=== PATIENT | female | born 1940 | race Caucasian/White ===

== ENCOUNTER 2017-10-10 14:31 | Emergency (ER) | payer MEDICARE ==
--- NOTE | 2017-10-10 15:35 | RAD ---
CHEST PA AND LATERAL 2 VIEWS: Date: 10/10/17 HISTORY: 76-year-old female with cough. FINDINGS: Prominent dextroscoliosis of the mid thoracic vertebral column. Heart size is normal. There is some a therosclerosis of the aorta. No confluent pneumonia, overt edema, or pleural effusion. IMPRESSION: Dextroscoliosis. No acute intrathoracic disease. Stable from 08/30/15. POS: [facility]
[2017-10-10 15:52] LABS: #Basophils 0.1 thou/uL (0.0-0.2); #Eosinphils 0.1 thou/uL (0.0-0.7); #Lymphocytes 1.7 thou/uL (1.20-3.40); #Monocytes 0.5 thou/uL (0.11-0.59); #Neutrophils 2.3 thou/uL (1.40-6.50); %Basophils 1.3 % (0.0-1.0); %Eosinophils 1.8 % (0.0-10.0); %Lymphocytes 36.6 % (21.0-51.0); %Monocytes 11.2 % (0.0-10.0); %Neutrophils 49.1 % (42.0-75.0); Hemoglobin 12.3 g/dL (12.0-16.0); Mean Corpuscular HGB CONC 32.2 g/dL (32.0-36.0); Mean Corpuscular Hemoglobin 31.7 pg (27.0-31.0); Mean Corpuscular Volume 98.3 fl (81.0-99.0); Mean Platelet Volume 5.7 fL (7.4-10.4); Platelet Count 286 thou/uL (130-400); RBC Distribution Width 11.2 % (11.5-14.5); Red Blood Cell (RBC) Count 3.88 mill/uL (4.20-5.40); White Blood Cell (WBC) Count 4.6 thou/uL (4.8-10.8)
[2017-10-10 16:13] LABS: ALT (SGPT) 78 U/L (8-55); AST (SGOT) 72 U/L (5-34); Albumin 3.9 g/dL (3.4-4.8); Alkaline Phosphatase 286 U/L (40-150); Anion Gap 13 mmol/L (10-20); BUN (Urea Nitrogen) 9 mg/dL (9.8-20.1); Bilirubin, Total 0.2 mg/dL (0.2-1.2); Calc. Creatinine Clearance 0 mL/min (70-130); Calcium 9.4 mg/dL (7.8-10.44); Carbon Dioxide 28 mmol/L (23-31); Chloride 94 mmol/L (98-107); Estimated GFR-MDRD 83; Globulin 3.1 g/dL (2.4-3.5); Glucose 90 mg/dL (83-110); Potassium 4.4 mmol/L (3.5-5.1); Sodium 131 mmol/L (136-145)
[2017-10-10] MEDS ORDERED: Dexamethasone 4 mg/ml Vial ONE (16:30)
== END 2017-10-10 18:10 | disposition home or self-care (01) ==
LOC: ERS 14:31
DX: R06.2 Wheezing (principal); K21.9 Gastro-esophageal reflux disease without esophagitis; I10 Essential (primary) hypertension
CPT/HCPCS: 36415; 71046; 80053; 85025; 94640; J1100; J7620

== ENCOUNTER 2017-10-12 02:52 | Emergency (ER) | payer MEDICARE ==
[2017-10-12] MEDS ORDERED: Acetaminophen 500 MG TAB ONE (04:05)
== END 2017-10-12 04:56 | disposition home or self-care (01) ==
LOC: ERS 02:52
DX: I10 Essential (primary) hypertension (principal); K21.9 Gastro-esophageal reflux disease without esophagitis; G89.29 Other chronic pain
CPT/HCPCS: 99283

== ENCOUNTER 2018-06-07 14:20 | Outpatient (CLI) | payer MEDICARE | END 2018-06-07 14:21 | disposition home or self-care (01) | LOC: BICCT 14:20 | PROVIDERS: ATTEND Neurological Surgery | DX: M54.5 Low back pain (principal); M54.6 Pain in thoracic spine; M47.894 Other spondylosis, thoracic region; M43.9 Deforming dorsopathy, unspecified; M47.896 Other spondylosis, lumbar region | CPT/HCPCS: 72128; 72131 ==

== ENCOUNTER 2018-08-10 16:48 | Emergency (ER) | payer MEDICARE | END 2018-08-10 17:35 | disposition home or self-care (01) | LOC: ERS 16:48 | DX: S00.512A Abrasion of oral cavity, initial encounter (principal); K21.9 Gastro-esophageal reflux disease without esophagitis; I10 Essential (primary) hypertension; Z79.899 Other long term (current) drug therapy; Z79.891 Long term (current) use of opiate analgesic; Y33.XXXA Other specified events, undetermined intent, initial encounter | CPT/HCPCS: 99283 ==

== ENCOUNTER 2018-10-30 23:44 | Observation (INO) | payer MEDICARE ==
[2018-10-31 00:25] LABS: #Eosinphils 0.1 thou/uL (0.0-0.7); #Lymphocytes 1.1 thou/uL (1.20-3.40); #Monocytes 0.6 thou/uL (0.11-0.59); #Neutrophils 4.8 thou/uL (1.40-6.50); %Eosinophils 1.7 % (0.0-10.0); %Lymphocytes 15.6 % (21.0-51.0); %Monocytes 9.1 % (0.0-10.0); %Neutrophils 71.6 % (42.0-75.0); Hemoglobin 12.9 g/dL (12.0-16.0); Mean Corpuscular HGB CONC 33.1 g/dL (32.0-36.0); Mean Corpuscular Hemoglobin 31.5 pg (27.0-31.0); Mean Platelet Volume 6.3 fL (7.4-10.4); Platelet Count 238 thou/uL (130-400); Red Blood Cell (RBC) Count 4.11 mill/uL (4.20-5.40); White Blood Cell (WBC) Count 6.7 thou/uL (4.8-10.8)
[2018-10-31 00:26] LABS: #Basophils 0.1 thou/uL (0.0-0.2)
[2018-10-31 00:47] LABS: ALT (SGPT) 21 U/L (8-55); AST (SGOT) 22 U/L (5-34); Albumin 4.5 g/dL (3.4-4.8); Alkaline Phosphatase 74 U/L (40-150); Anion Gap 12 mmol/L (10-20); BUN (Urea Nitrogen) 26 mg/dL (9.8-20.1); Bilirubin, Total 0.3 mg/dL (0.2-1.2); Calc. Creatinine Clearance 0 mL/min (70-130); Calcium 10.6 mg/dL (7.8-10.44); Carbon Dioxide 26 mmol/L (23-31); Chloride 99 mmol/L (98-107); Estimated GFR-MDRD 69; Globulin 2.9 g/dL (2.4-3.5); Glucose 111 mg/dL (83-110); Potassium 4.1 mmol/L (3.5-5.1); Protein, Total 7.4 g/dL (6.0-8.3); Sodium 133 mmol/L (136-145)
[2018-10-31] MEDS ORDERED: Aspirin Chewable 81 MG TAB ONE (01:35)
[2018-10-31] MEDS ORDERED: Nitroglycerin 0.4 MG TAB 1 EACH ONE (01:35)
[2018-10-31] MEDS ORDERED: HYDROcodone/Acetaminophen 10/325 mg Tablet ONE (03:01)
[2018-10-31 03:55] LABS: Troponin I Less than 0.010 ng/mL (< 0.028)
[2018-10-31 04:31] VITALS: BMI 23.1
[2018-10-31] MEDS ORDERED: Acetaminophen 325 MG TAB PO PRN (04:58)
[2018-10-31] MEDS ORDERED: HYDROcodone/Acetaminophen 5/325 mg Tablet PO PRN ×2 (04:58)
[2018-10-31 07:20] LABS: Troponin I Less than 0.010 ng/mL (< 0.028)
--- NOTE | 2018-10-31 08:04 | RAD ---
FRONTAL RADIOGRAPH CHEST: DATE: 10/31/2018. COMPARISON: 08/30/2015. HISTORY: Short of breath. FINDINGS: Heart and mediastinal contours are stable. There is atherosclerotic calcification of the aortic arch . There is dextroscoliosis of the mid thoracic spine. No pneumothorax, pleural fluid, focal consolidat ion, or alveolar edema. IMPRESSION: No acute findings. POS: [facility]
--- NOTE | 2018-10-31 08:48 | CT ---
PRELIMINARY REPORT/[facility]/EMERGENTY AFTER-HOURS PROCEDURE CT Angiography Chest With Contrast EXAM DATE/TIME: 10/31/2018 1:50 AM CLINICAL HISTORY: 77 years old, female; Signs and symptoms; Dyspnea; Patient HX: PT C/O SOB and chest pain. States its hard to take in a deep breath. TECHNIQUE: Axial computed tomographic angiography images of the chest with intravenous contrast using CT angiogr aphy protocol. MIP reconstructed images were created and reviewed. COMPARISON: No relevant prior studies available. FINDINGS: Pulmonary arteries: There is no evidence of peripheral filling defects within the pulmonary arterial circulation to suggest pulmonary embolism. Aorta: The aorta is normal. There is no evidence of aortic dissection, leak, rupture, or other compli cations. Thyroid: The visualized thyroid gland is unremarkable. Lungs: There is subpleural atelectasis of the dependent portions of the lungs. Pleural space: Normal. No pneumothorax. No pleural effusion. Heart: Normal. No cardiomegaly. No pericardial effusion. Mediastinum: The trachea is normal. Upper abdomen: The visualized intra-abdominal structures are normal. Lymph nodes: Unremarkable. No enlarged lymph nodes. Bones/joints: There is mild S-shaped scoliosis of the spine. No acute fracture. Soft tissues: Unremarkable. IMPRESSION: There is no CT evidence of acute pulmonary embolism. Thank you for allowing us to participate in the care of your patient. Dictated and Authenticated by: Danny Mancini MD 10/31/2018 2:37 AM Central Time ([place] & [place]) FINAL REPORT CT ANGIOGRAM OF CHEST: Date: 10/31/18 HISTORY: Shortness of breath. Chest pain. COMPARISON: None. TECHNIQUE: CT angiogram of the chest was performed in the axial plane. Three-dimensional reformatted images are submitted for interpretation. FINDINGS: This report is in agreement with the preliminary report by Brent. No evidence of pulmonary artery embo lism to the level of the segmental arteries. POS: [facility]
[2018-10-31] MEDS ORDERED: Ondansetron ODT 4 MG TAB PO PRN (10:02)
[2018-10-31] MEDS ORDERED: Ondansetron PF 4 MG/2 ML Vial IVP PRN (10:02)
[2018-10-31] MEDS ORDERED: ESTRADIOL 0.1 MG PO PRN (10:05)
[2018-10-31] MEDS ORDERED: CLORAZEPATE DIPOTASSIUM 7.5 MG PO PRN ×3 (10:05→10:51)
[2018-10-31] MEDS ORDERED: cloNIDine 0.1 MG TAB PO PRN (10:05)
[2018-10-31] MEDS ORDERED: Estradiol 1 MG TAB PO PRN (10:48)
[2018-10-31] MEDS ORDERED: Saccharomyces boulardii 250 MG CAP PO SCH ×2 (11:15→12:00)
[2018-10-31] MEDS ORDERED: ADENOSINE 60 MG/20 ML VIAL ONE (12:04)
[2018-10-31] MEDS: Carvedilol 6.25 MG TAB PO SCH ×2 (13:06→17:03)
--- NOTE | 2018-10-31 13:55 | HP ---
PRIMARY CARE PHYSICIAN: Amadeo Sorto MD PRIMARY STRUCTURAL RIGGER: Dr. Viveros. PRIMARY SHIRRING TENDER: Dr. Chao. CHIEF COMPLAINT: Left-sided chest pain/epigastric pain, abdominal bloating. HISTORY OF PRESENT ILLNESS: Ms. Melendrez is a pleasant 77-year-old female with past medical history of hypertension, gastroesophageal reflux disease, and disk herniation in her back, who had presented to [facility] late last night with left-sided chest pain radiating to left epigastric area along with abdominal bloating over the last several weeks. She states roughly a month ago, she had a tooth extraction by her kitchen worker. She states prior to this procedure, she was placed on antibiotics that she could not tell me what she was on, she states that she took this for about a week. She had reported some abdominal bloating and flatulence during this time as well. She had started herself on an [id number] probiotic and she states that the symptoms did improve. She states that she had stopped this about 2 weeks ago, but had noticed symptoms returned about 1 week ago. She states roughly on Wednesday of last week, she had restarted this probiotic and states symptoms are improved; however, still present. She was worried that this was possibly her heart. Therefore, she had drove herself to the Emergency Department for further evaluation. She states that she has had a cardiac workup in the past, but does not know these results. She states her primary photogrammetric stereo compiler is Dr. Chao, whom she follows up with on a yearly basis. She had denied any fever, chills, any headache or dizziness. She did report some shortness of breath with activity that had been going on for the last week along with her other symptoms. During her initial workup in the Emergency Department, she underwent a chest x-ray, which was found to be negative and showed no acute findings. CTA of chest ruled out pulmonary emboli. Her initial troponins were found to be negative and less than 0.010 x2 and D-dimer 0.61. She will be admitted under observation for further cardiac workup and rule out ACS. REVIEW OF SYSTEMS: All other systems reviewed and found to be negative unless mentioned in the HPI. PAST MEDICAL HISTORY: Hypertension, disk herniation, and gastroesophageal reflux disease. PAST SURGICAL HISTORY: History of abdominal surgery to repair a torn mesh, appendectomy, hernia repair, surgery on her right knee, surgery on left hip, and total knee replacement on the right. SOCIAL HISTORY: Denies any alcohol, tobacco, or illicit drug use. FAMILY HISTORY: No significant history of coronary artery disease or strokes. ALLERGIES: KETOROLAC, MORPHINE, AND PENICILLIN. HOME MEDICATIONS: 1. OxyContin 40 mg p.o. q.6 hours p.r.n. pain. 2. Hydrocodone/acetaminophen 7.5 mg/325 mg tablet p.o. q.4 hours as needed for pain. 3. Enalapril 20 mg p.o. b.i.d. with meals. 4. Carisoprodol/Soma 350 mg p.o. q.i.d. 5. Clonidine 0.1 mg p.o. p.r.n. hypertension. 6. Carvedilol 6.25 mg p.o. t.i.d. with meals. 7. Amlodipine 5 mg p.o. at bedtime. 8. Ranitidine 150 mg p.o. daily. 9. Dulcolax 5 mg p.o. every 3 days as needed. 10. Desmopressin 0.05 mg p.o. at bedtime. 11. Clorazepate dipotassium 7.5 mg p.o. b.i.d. p.r.n. 12. Estradiol 0.1 mg p.o. p.r.n. PHYSICAL EXAMINATION: VITAL SIGNS: BP 120/64, pulse 63, respirations 16, temperature 98.1 degrees Fahrenheit, and O2 saturation 96% on room air. GENERAL: Lying comfortably in bed, awake, alert, and oriented x3. No acute distress noted. Appears well groomed. HEENT: Normocephalic and atraumatic. Pupils are round and reactive to light. Extraocular muscles intact. Moist mucous membranes noted. NECK: Soft and supple. No JVD. No bruit. Trachea midline. CARDIOVASCULAR: Positive S1 and S2. Regular rate and rhythm. No murmur, rubs, or gallops. RESPIRATORY: Clear to auscultation bilaterally without wheezes, rales, or rhonchi. ABDOMEN: Soft and nontender. Bowel sounds present. Nondistended. Increased sounds to percussion. EXTREMITIES: Strength 5+ bilaterally upper and lower extremities. Moves all extremities equal. Radial and pedal pulses palpable and normal. SKIN: Warm, dry, and intact. Surgical scars noted in left hip and right knee. NEUROLOGIC: Cranial nerves 2 through 12 intact. No focal deficits noted. Gait not assessed. PSYCHIATRIC: Good mood and affect. LABORATORY DATA: WBC 6.7, RBC 4.11, hemoglobin 12.9, and platelets 238. D-dimer 0.61. Sodium 133, potassium 4.1, carbon dioxide 26, anion gap 12, BUN 26, creatinine 0.81, estimated GFR 69, and alkaline phosphatase 74. Troponin less than 0.010 x2. Lipase 11. DIAGNOSTIC IMAGING: Chest x-ray showed no acute findings. CTA of chest showed no evidence of acute pulmonary embolism. ASSESSMENT AND PLAN: 1. Left-sided epigastric pain, this is likely secondary to underlying gastroesophageal reflux disease. However, we will rule out cardiac etiology with stress test and echocardiogram, place the patient on proton pump inhibitor with Protonix along with probiotic. Monitor symptoms closely and await further workup. Start Zofran as needed for nausea. 2. Hypertension, currently stable at this time. She will remain on her home regimen and monitor vital signs closely. 3. History of chronic back pain. Continue on home regimen at this time. 4. Deep venous thrombosis prophylaxis and gastrointestinal prophylaxis. 5. Code status. Full code. 6. Disposition pending further workup and clinical findings. If her workup for cardiac etiology is negative, she will likely be discharged home with a continued use of probiotic and proton pump inhibitor. Job ID: [id number]
--- NOTE | 2018-10-31 15:17 | NM ---
EXAM: CARDIAC SPECT WITH EF AND WALL MOTION: History: 77-year-old female with history of chest pain and hypertension. This is an adenosine sestamibi study. FINDINGS: Patient was injected with 31.9 mCi Technetium 99M Sestamibi intravenously for stress imaging and 9.3 mCi Technetium 99M Sestamibi intravenously for resting imaging. Multiple SPECT images in the short axis, vertical long axis, and horizontal long axis demonstrates no scan evidence for infarct or ischemia. TID: 0.76 LHR: 0.36 EDV: 70 ml EF: 85% MYOCARDIAL PERFUSION WALL MOTION: Wall motion is normal. IMPRESSION: Normal cardiac SPECT with EF and wall motion. POS: [facility]
[2018-10-31] MEDS ORDERED: ISOVUE-370 76%-LOCM 1 ML ONE (16:56)
[2018-10-31] MEDS ORDERED: ENALAPRIL MALEATE 20 MG PO SCH (17:00)
[2018-10-31] MEDS ORDERED: DESMOPRESSIN ACETATE PO SCH (21:00)
[2018-10-31] MEDS ORDERED: Desmopressin 0.2 mg Tablet PO SCH ×2 (21:00)
[2018-10-31] MEDS ORDERED: Amlodipine 5 MG TAB PO SCH (21:00)
[2018-11-01] MEDS ORDERED: oxyCODONE ER 20 MG TAB PO PRN (03:45)
[2018-11-01] MEDS ORDERED: HYDROcodone/Acetaminophen 7.5/325 mg Tablet PO PRN (03:45)
[2018-11-01 05:25] LABS: #Eosinphils 0.1 thou/uL (0.0-0.7); #Lymphocytes 1.1 thou/uL (1.20-3.40); #Monocytes 0.6 thou/uL (0.11-0.59); #Neutrophils 2.5 thou/uL (1.40-6.50); %Basophils 0.3 % (0.0-1.0); %Eosinophils 1.3 % (0.0-10.0); %Lymphocytes 25.3 % (21.0-51.0); %Monocytes 13.4 % (0.0-10.0); %Neutrophils 59.6 % (42.0-75.0); Hemoglobin 12.2 g/dL (12.0-16.0); Mean Corpuscular Hemoglobin 31.6 pg (27.0-31.0); Mean Corpuscular Volume 95.7 fL (78.0-98.0); Mean Platelet Volume 6.3 fL (7.4-10.4); Platelet Count 215 thou/uL (130-400); RBC Distribution Width 11.2 % (11.5-14.5); Red Blood Cell (RBC) Count 3.86 mill/uL (4.20-5.40); White Blood Cell (WBC) Count 4.3 thou/uL (4.8-10.8)
[2018-11-01 05:41] LABS: Anion Gap 12 mmol/L (10-20); BUN (Urea Nitrogen) 15 mg/dL (9.8-20.1); Calc. Creatinine Clearance 86 mL/min (70-130); Calcium 9.7 mg/dL (7.8-10.44); Carbon Dioxide 24 mmol/L (23-31); Chloride 103 mmol/L (98-107); Estimated GFR-MDRD 86; Glucose 102 mg/dL (83-110); Potassium 3.6 mmol/L (3.5-5.1); Sodium 135 mmol/L (136-145)
[2018-11-01 08:10] VITALS: BP 130/61; TEMP 97.9
[2018-11-01] MEDS: Carvedilol 6.25 MG TAB PO SCH (08:11)
[2018-11-01] MEDS ORDERED: Enoxaparin Sodium 40 MG/0.4 ML SYRINGE SC SCH (09:00)
[2018-11-01] MEDS ORDERED: Saccharomyces boulardii 250 MG CAP PO SCH (09:00)
--- NOTE | 2018-11-01 11:19 | PDOC.EVN ---
Event Note - Event Note Event Note: patient interviewed, management discussed with John MANN concmarcela
--- NOTE | 2018-11-01 22:18 | DIS ---
DATE OF ADMISSION: 10/31/2018 DATE OF DISCHARGE: 11/01/2018 DISCHARGE DIAGNOSES: 1. Chest pain, noncardiac, resolved. 2. Gastroesophageal reflux disease, stable. 3. Hypertension, stable. CONSULTATIONS: None. PROCEDURES: None. LABORATORY DATA: WBC 4.3, RBC 3.86, hemoglobin 12.2, platelet 215. D-dimer 0.61. Sodium 135, potassium 3.6, carbon dioxide 24, anion gap 12, BUN 15, creatinine 0.67, estimated GFR 86, glucose 102. Troponin less than 0.010 x2. BNP 69.6, lipase 11. DIAGNOSTIC IMAGING: Portable chest x-ray showed no acute findings. CTA of chest showed no CT evidence of acute pulmonary embolism. Cardiac stress test showed normal wall motion with an EF of 85%, normal cardiac stress test. Pending diagnostic test, echocardiogram obtained on 10/31/2018. HOSPITAL COURSE: Ms. Melendrez is a pleasant 77-year-old female, who had presented to [facility] with left-sided chest pain, epigastric pain, and worsening abdominal bloating. She was admitted under observation and underwent cardiac workup. Serial troponins were found to be negative x3. Her D-dimer was found to be elevated at 0.61. However, CTA of chest ruled out pulmonary embolism. Portable chest x-ray was found to be unremarkable. She was placed on her home medications and started on Protonix twice daily along with probiotic. She had reported recently taking clindamycin for a possible tooth infection and since then had developed the symptoms. Therefore, worsening of her underlying gastroesophageal reflux disease was presumed along with possible gastritis due to clindamycin. Throughout hospital course, symptoms did improve continuing on PPI and probiotic. She underwent echocardiogram, which these results are pending at the time of discharge. She also underwent cardiac stress tests, which found normal wall motion and ejection fraction of 85% with no evidence for infarct or ischemia. She was seen and examined with her son at bedside. Prior to discharge, she had no further complaints of headache, dizziness, blurred vision, chest pain, palpitations, shortness of breath, or abdominal pain. She had returned to her baseline. She was instructed to continue her home probiotic along with PPI. She was also instructed to continue her home medications. She had verbalized her understanding for this discharge plan and was deemed medically stable for discharge home on 11/01/2018. DISCHARGE MEDICATIONS: 1. OxyContin 40 mg p.o. every 6 hours p.r.n. pain. 2. Hydrocodone/acetaminophen 7.5/325 mg oral q.4 hours as needed for pain. 3. Enalapril 20 mg p.o. b.i.d. 4. Soma 350 mg p.o. q.i.d. 5. Clonidine 0.1 mg p.o. p.r.n. elevated blood pressure. 6. Carvedilol 6.25 mg p.o. t.i.d. with meals. 7. Amlodipine 5 mg p.o. at bedtime. 8. Ranitidine 150 mg p.o. daily. 9. Dulcolax 5 mg p.o. every 3 days. 10. Desmopressin 0.05 mg at bedtime. 11. Clorazepate dipotassium 7.5 mg p.o. b.i.d. 12. Estradiol 0.1 mg p.o. 13. Protonix 40 mg p.o. b.i.d. FOLLOWUP: The patient was instructed to follow up with her primary care physician, Dr. Amadeo Sorto, in 1 to 2 weeks. CONDITION ON DISCHARGE: Stable. ACTIVITY: As tolerated. DIET: Heart healthy. CODE STATUS: Full code. DISPOSITION: Home on 11/01/2018. Job ID: [id number]
[2018-11-03] MEDS ORDERED: Bisacodyl 5 MG TAB PO SCH (09:00)
--- NOTE | 2018-11-05 14:47 | EKG ---
Test Reason : Blood Pressure : / mmHG Vent. Rate : 078 BPM Atrial Rate : 078 BPM P-R Int : 156 ms QRS Dur : 096 ms QT Int : 350 ms P-R-T Axes : 073 046 037 degrees QTc Int : 399 ms Sinus rhythm with Premature supraventricular complexes Otherwise normal ECG Confirmed by ROGELIO TRINIDAD MD ([id number]), content editor ALAN REBOLLAR ([id number]) on 11/05/2018 2:47:05 PM Referred By: Confirmed By:ROGELIO TRINIDAD MD
--- NOTE | 2018-11-07 14:18 | STRESS ---
Acquisition Time: 2018-10-31 11:41:42 Total Exercise Time: 00:04:00 Test Indications: CHEST PAIN Medications: Protocol: ADENOSINE Max HR: 085 BPM 58% of Pred: 145 BPM Max BP: 154/080 mmHG Max Work Load: 1.0 METS RESTING ECG: NORMAL SINUS RHYTHM AT 65 BPM SYMPTOMS: CHEST PAIN NORMAL BP RESPONSE ECTOPY: NONE ECG STRESS: NO SIGNIFICANT CHANGES INTERPRETATION: AWAIT NUCLEAR IMAGES FOR DEFINITIVE DIAGNOSIS COMMENTS: CARMEN DURING ADENOSINE INFUSION Confirmed by MARYANN COCHRAN ([id number]), editor news MURTAZA LR ([id number]) on 11/07/2018 2:17:21 PM Referred By: JOS COREY Confirmed By:MARYANN COCHRAN
== END 2018-11-01 11:22 | disposition home or self-care (01) ==
LOC: ERS 23:44 → 2SW 10-31 03:07
PROVIDERS: ADMIT Hospitalist; ATTEND Hospitalist
DX: R07.89 Other chest pain (principal); K21.9 Gastro-esophageal reflux disease without esophagitis; I10 Essential (primary) hypertension; I70.0 Atherosclerosis of aorta; Z88.0 Allergy status to penicillin; Z88.5 Allergy status to narcotic agent; Z88.6 Allergy status to analgesic agent; Z98.890 Other specified postprocedural states; Z79.899 Other long term (current) drug therapy
CPT/HCPCS: 71045; 71275; 78452; 80048; 80053; 83690; 83880; 84484 ×2; 85025 ×2; 85379; 93005; 93017; 93306; 96372; 99285; A9500; G0378; 36415; J0153; J1650; Q9966

== ENCOUNTER 2019-01-04 12:27 | Emergency (ER) | payer MEDICARE ==
[2019-01-04 13:34] LABS: #Basophils 0.1 thou/uL (0.0-0.2); #Eosinphils 0.1 thou/uL (0.0-0.7); #Lymphocytes 1.6 thou/uL (1.20-3.40); #Monocytes 0.4 thou/uL (0.11-0.59); #Neutrophils 3.2 thou/uL (1.40-6.50); %Basophils 1.2 % (0.0-1.0); %Eosinophils 1.5 % (0.0-10.0); %Lymphocytes 29.6 % (21.0-51.0); %Monocytes 7.8 % (0.0-10.0); Hemoglobin 13.6 g/dL (12.0-16.0); Mean Corpuscular HGB CONC 32.8 g/dL (32.0-36.0); Mean Corpuscular Hemoglobin 30.3 pg (27.0-31.0); Mean Corpuscular Volume 92.3 fL (78.0-98.0); Mean Platelet Volume 6.1 fL (7.4-10.4); Platelet Count 287 thou/uL (130-400); Red Blood Cell (RBC) Count 4.49 mill/uL (4.20-5.40); White Blood Cell (WBC) Count 5.4 thou/uL (4.8-10.8)
[2019-01-04 13:51] LABS: ALT (SGPT) 13 U/L (8-55); AST (SGOT) 23 U/L (5-34); Albumin 4.6 g/dL (3.4-4.8); Alkaline Phosphatase 88 U/L (40-150); Anion Gap 13 mmol/L (10-20); BUN (Urea Nitrogen) 14 mg/dL (9.8-20.1); Bilirubin, Total 0.5 mg/dL (0.2-1.2); Calc. Creatinine Clearance 0 mL/min (70-130); Calcium 10.2 mg/dL (7.8-10.44); Carbon Dioxide 27 mmol/L (23-31); Chloride 93 mmol/L (98-107); Estimated GFR-MDRD 73; Globulin 2.7 g/dL (2.4-3.5); Glucose 91 mg/dL (83-110); Potassium 4.1 mmol/L (3.5-5.1); Protein, Total 7.3 g/dL (6.0-8.3); Sodium 129 mmol/L (136-145)
[2019-01-04 14:02] LABS: Bilirubin Negative (Negative); Blood, Urine Negative (Negative); Clarity CLEAR (Clear); Glucose, Urine (Dipstick) Negative (Negative); Leukocyte Negative (Negative); Nitrite Negative (Negative); Protein, Urine (Dipstick) Negative (Neg-Trace); Specific Gravity, Urine 1.004 (1.002-1.036); Urobilinogen 0.2 mg/dL (0.2-1.0)
--- NOTE | 2019-01-04 16:03 | RAD ---
XR Neck Soft Tissue History: [Dysphagia] Comparison: None. Findings: The prevertebral soft tissues are unremarkable. Extensive calcifications along the supraspi nous ligament of the upper thoracic spine. Multilevel severe degenerative disc space narrowing about the cervical spine. There is anterolisthesi s of C3 over C4 and C4 over C5. Visualized lung apices appear unremarkable. Impression: Unremarkable examination of the neck soft tissues. Severe degenerative changes.
[2019-01-04] MEDS ORDERED: Aspirin Chewable 81 MG TAB ONE (17:47)
== END 2019-01-04 18:00 | disposition home or self-care (01) ==
LOC: ERS 12:27
DX: R13.10 Dysphagia, unspecified (principal); E87.1 Hypo-osmolality and hyponatremia; K21.9 Gastro-esophageal reflux disease without esophagitis; F41.9 Anxiety disorder, unspecified; Z79.899 Other long term (current) drug therapy
CPT/HCPCS: 36415; 70360; 80053; 81003; 84484; 85025; 93005

== ENCOUNTER 2019-03-10 10:03 | Day surgery (SDC) | payer MEDICARE ==
[2019-03-09 14:44] VITALS: BMI 24.4
--- NOTE | 2019-03-10 00:23 | HP ---
HISTORY OF PRESENT ILLNESS: A 78-year-old female referred to me for evaluating dysphagia. She is known to have chronic acid reflux .. She complains of fullness and also difficulty with swallowing. She has seen an Ear , Nose and Throat doctor and laryngoscopy was negative. The patient comes in for EGD, because of the above reason. ALLERGIES: PENICILLIN. SOCIAL HISTORY: The patient is a former smoker. Does not drink alcohol. MEDICAL ILLNESSES: 1. Chronic acid reflux. 2. Herniated disk, back. 3. Bone fracture. 4. Hypertension. 5. Migraine. 6. IBS. 7. Osteoporosis. PAST SURGICAL HISTORY: Appendectomy, hysterectomy, knee surgery, cataract surgery, and also hip surgery. PHYSICAL EXAMINATION: GENERAL: Appears comfortable, pulse is 70, blood pressure 120/76. HEENT: Conjunctivae clear. NECK: Supple. No adenitis or thyromegaly noted. CARDIOVASCULAR: First and second sound. LUNGS: Clear to auscultation. ABDOMEN: Soft. No organomegaly. No tenderness. No masses. ADMITTING DIAGNOSIS: Dysphagia-chronic acid reflux. PLAN: EGD. Job ID: [id number] [facility]
[~2019-03-10 10:03] MED LIST: Ondansetron PF 4 MG/2 ML Vial ONE
[2019-03-10] MEDS ORDERED: Lidocaine 1% PF 5 ML VIAL ONE (10:57)
[2019-03-10] MEDS ORDERED: PROPOFOL 200 MG/20 ML VIAL ONE (10:57)
--- NOTE | 2019-03-10 21:28 | EKG ---
Test Reason : PREOP Blood Pressure : / mmHG Vent. Rate : 068 BPM Atrial Rate : 068 BPM P-R Int : 232 ms QRS Dur : 096 ms QT Int : 384 ms P-R-T Axes : 079 070 049 degrees QTc Int : 408 ms Sinus rhythm with 1st degree A-V block Otherwise normal ECG When compared with ECG of 04-JAN-2019 16:55, MS interval has increased Confirmed by Cooper MARIE ([id number]) on 03/10/2019 9:27:51 PM Referred By: GUMARO Confirmed By:Cooper MARIE
--- NOTE | 2019-03-13 11:39 | OP ---
DATE OF PROCEDURE: 03/10/2019 PROCEDURES PERFORMED: 1. Esophagogastroduodenoscopy. 2. Esophageal dilation with a 46-Guaman[place] Amaya dilator. PREOPERATIVE DIAGNOSES: Dysphagia, current dyspepsia, chronic acid reflux. POSTOPERATIVE DIAGNOSES: 1. Mild gastritis. 2. Small hiatus hernia. 3. No esophageal stricture seen. Otherwise, normal esophagogastroduodenoscopy. DESCRIPTION OF PROCEDURE: The patient was placed on the left lateral position and was given sedation by Anesthesia Department. A Pentax video gastroscope under direct vision was passed down the oropharynx, past the GE junction into the stomach and subsequently into the descending duodenum. Although the patient had chronic acid reflux,, the esophageal mucosa appeared normal. No esophagitis seen. The GE junction , no pathology. She had a small hiatal hernia. Retroflexion failed to show any pathology in the fundus or cardia. The gastric body, no pathology. The gastric antrum showed patchy areas of mucosal edema, erythema. The duodenal bulb, descending duodenum, no pathology. The stomach decompressed and the scope removed. Because of history of dysphagia, a 46-Gu[place] Amaya dilation done. The scope was advanced into stomach without resistance. The patient was re-scoped again and no complication. Also, biopsy was obtained from the gastric antrum and gastric body. DISCHARGE PLANNING: This is a 78-year-old female, came for EGD because of dysphagia, chronic acid reflux. The EGD showed no esophagitis, but does show a small hiatus hernia and gastritis. She underwent empiric dilation with a 46- [place] Amaya dilator. DISCHARGE RECOMMENDATION: 1. The patient advised to call me if she develops abdominal pain, hematochezia, hematemesis, or melena. 2. Come back to clinic in 2 weeks. Job ID: [id number] [facility]
== END 2019-03-10 10:23 | disposition home or self-care (01) ==
LOC: SDC 10:03
PROVIDERS: ATTEND Internal Medicine Gastroenterology
PROC: 0D757ZZ Dilation of Esophagus, Via Natural or Artificial Opening (ICD-10-PCS; principal; 2019-03-10)
PROC: 0DB68ZX Excision of Stomach, Via Natural or Artificial Opening Endoscopic, Diagnostic (ICD-10-PCS; 2019-03-10)
PROC: 0DB78ZX Excision of Stomach, Pylorus, Via Natural or Artificial Opening Endoscopic, Diagnostic (ICD-10-PCS; 2019-03-10)
DX: K29.50 Unspecified chronic gastritis without bleeding (principal); B96.81 Helicobacter pylori [H. pylori] as the cause of diseases classified elsewhere; R13.10 Dysphagia, unspecified; K21.9 Gastro-esophageal reflux disease without esophagitis; K44.9 Diaphragmatic hernia without obstruction or gangrene; I10 Essential (primary) hypertension; G43.909 Migraine, unspecified, not intractable, without status migrainosus; K58.9 Irritable bowel syndrome, unspecified; M81.0 Age-related osteoporosis without current pathological fracture; Z87.891 Personal history of nicotine dependence; Z88.0 Allergy status to penicillin; Z79.899 Other long term (current) drug therapy; Z88.5 Allergy status to narcotic agent; Z88.6 Allergy status to analgesic agent
CPT/HCPCS: 88305; 88312; 93005; 93010; J2001; J2405; J2704

== ENCOUNTER 2019-04-13 06:49 | Emergency (ER) | payer MEDICARE | END 2019-04-13 07:42 | disposition home or self-care (01) | LOC: ERS 06:49 | DX: H60.91 Unspecified otitis externa, right ear (principal); F41.9 Anxiety disorder, unspecified | CPT/HCPCS: 99282 ==

== ENCOUNTER 2020-03-16 20:34 | Emergency (ER) | payer MEDICARE ==
[~2020-03-16 20:34] MED LIST changes: +Iopamidol-370 76% 500 ML 1 ML ONE; -Ondansetron PF 4 MG/2 ML Vial ONE
[2020-03-16 21:06] LABS: #Eosinphils 0.1 thou/uL (0.0-0.7); #Lymphocytes 1.1 thou/uL (1.20-3.40); #Monocytes 0.5 thou/uL (0.11-0.59); #Neutrophils 4.1 thou/uL (1.40-6.50); %Basophils 0.7 % (0.0-1.0); %Eosinophils 2.4 % (0.0-10.0); %Lymphocytes 19.4 % (21.0-51.0); %Monocytes 8.5 % (0.0-10.0); Hemoglobin 12.4 g/dL (12.0-16.0); Mean Corpuscular HGB CONC 33.6 g/dL (32.0-36.0); Mean Corpuscular Volume 95.3 fL (78.0-98.0); Mean Platelet Volume 6.1 fL (7.4-10.4); Platelet Count 241 thou/uL (130-400); RBC Distribution Width 11.4 % (11.5-14.5); Red Blood Cell (RBC) Count 3.88 mill/uL (4.20-5.40); White Blood Cell (WBC) Count 5.9 thou/uL (4.8-10.8)
[2020-03-16 21:30] LABS: ALT (SGPT) 23 U/L (8-55); AST (SGOT) 26 U/L (5-34); Albumin 4.1 g/dL (3.4-4.8); Alkaline Phosphatase 70 U/L (40-110); Anion Gap 12 mmol/L (10-20); BUN (Urea Nitrogen) 12 mg/dL (9.8-20.1); Bilirubin, Total 0.3 mg/dL (0.2-1.2); CK (CPK) 98 U/L (29-168); Calc. Creatinine Clearance 0 mL/min (70-130); Calcium 9.3 mg/dL (7.8-10.44); Carbon Dioxide 23 mmol/L (23-31); Chloride 95 mmol/L (98-107); Estimated GFR-MDRD 81; Globulin 2.4 g/dL (2.4-3.5); Glucose 108 mg/dL (83-110); Potassium 4.2 mmol/L (3.5-5.1); Protein, Total 6.5 g/dL (6.0-8.3); Sodium 126 mmol/L (136-145)
[2020-03-16 21:51] LABS: Bilirubin 1+ (Negative); Blood, Urine Negative (Negative); Clarity Clear (Clear); Glucose, Urine (Dipstick) Normal (Negative); Leukocyte Negative Leu/uL (Negative); Nitrite Negative (Negative); Protein, Urine (Dipstick) 10 mg/dL (Neg-Trace); Urobilinogen Normal mg/dL (Less than 2)
[2020-03-16] MEDS ORDERED: Fentanyl 100 MCG/2 ML VIAL ONE (21:54)
--- NOTE | 2020-03-16 22:35 | CT ---
CT ABDOMEN AND PELVIS WITH IV CONTRAST: Date: 03/16/2020 PROVIDED CLINICAL HISTORY: Left flank pain. FINDINGS: Comparison made with study dated 05/15/2015. The visualized lung bases are free of significant opacity. There is stable enlargement and tortuosity of the common duct, as well as mild intrahepatic biliary d uctal dilatation, presumably on the basis of patient age. The solid abdominal organs demonstrate an o therwise unremarkable CT appearance. There is inflammatory fat stranding, free fluid, or free air apparent. The appendix is not definitely visualized. The pelvis is suboptimally evaluated on the basis of beam hardening artifact from left hip arthroplas ty. There is mild ectasia of several loops of small bowel within the pelvis. There is no definite jed dence for bowel obstruction. There is conspicuous colonic fecal retention. The osseous structures demonstrate no concerning lytic or blastic lesions. There are extensive spinal degenerative changes and scoliosis demonstrated. IMPRESSION: Several loops of mildly prominent small bowel are present within the pelvis, the significance of whic h are uncertain. This could reflect ileus or less likely early partial small bowel obstruction. Consp icuous colonic fecal retention, suggesting constipation. POS: [facility]
== END 2020-03-16 23:50 | disposition home or self-care (01) ==
LOC: ERS 20:34
DX: R10.9 Unspecified abdominal pain (principal); M54.5 Low back pain; K21.9 Gastro-esophageal reflux disease without esophagitis; I10 Essential (primary) hypertension; G89.29 Other chronic pain
CPT/HCPCS: 36415; 74177; 80053; 81003; 82550; 84484; 85025; 93005; 96374; J3010; Q9967

== ENCOUNTER 2020-03-21 18:40 | Inpatient (IN) | payer MEDICARE ==
[~2020-03-21 18:40] MED LIST changes: +Iopamidol 370 76% 100 ML VIAL ONE; -Iopamidol-370 76% 500 ML 1 ML ONE
[2020-03-21 19:11] LABS: Bilirubin Negative (Negative); Blood, Urine Negative (Negative); Clarity Turbid (Clear); Glucose, Urine (Dipstick) Normal (Negative); Leukocyte Negative Leu/uL (Negative); Nitrite Negative (Negative); Protein, Urine (Dipstick) Negative (Neg-Trace); Urobilinogen Normal mg/dL (Less than 2)
[2020-03-21 20:00] LABS: #Eosinphils 0.1 thou/uL (0.0-0.7); #Lymphocytes 0.8 thou/uL (1.20-3.40); #Monocytes 0.5 thou/uL (0.11-0.59); #Neutrophils 5.8 thou/uL (1.40-6.50); %Basophils 0.4 % (0.0-1.0); %Monocytes 7.4 % (0.0-10.0); %Neutrophils 80.2 % (42.0-75.0); Hemoglobin 12.8 g/dL (12.0-16.0); Mean Corpuscular HGB CONC 34.7 g/dL (32.0-36.0); Mean Corpuscular Hemoglobin 32.2 pg (27.0-31.0); Mean Corpuscular Volume 92.9 fL (78.0-98.0); Platelet Count 246 thou/uL (130-400); RBC Distribution Width 11.1 % (11.5-14.5); Red Blood Cell (RBC) Count 3.98 mill/uL (4.20-5.40); White Blood Cell (WBC) Count 7.3 thou/uL (4.8-10.8)
[2020-03-21 20:30] LABS: ALT (SGPT) 19 U/L (8-55); AST (SGOT) 24 U/L (5-34); Alkaline Phosphatase 68 U/L (40-110); Anion Gap 11 mmol/L (10-20); BUN (Urea Nitrogen) 11 mg/dL (9.8-20.1); Bilirubin, Total 0.3 mg/dL (0.2-1.2); Calc. Creatinine Clearance 0 mL/min (70-130); Calcium 9.1 mg/dL (7.8-10.44); Carbon Dioxide 23 mmol/L (23-31); Chloride 90 mmol/L (98-107); Estimated GFR-MDRD 82; Globulin 2.6 g/dL (2.4-3.5); Glucose 109 mg/dL (83-110); Lipase 18 U/L (8-78); Protein, Total 6.6 g/dL (6.0-8.3); Sodium 120 mmol/L (136-145)
[2020-03-21] MEDS ORDERED: Fentanyl 100 MCG/2 ML VIAL ONE (21:16)
[2020-03-21] MEDS ORDERED: Ondansetron PF 4 MG/2 ML Vial ONE (21:16)
[2020-03-22] MEDS ORDERED: Ondansetron PF 4 MG/2 ML Vial IVP PRN ×2 (01:17→09:50)
[2020-03-22] MEDS ORDERED: Promethazine HCl 12.5 MG in Sodium Chloride 0.9% 50 ML IVPB PRN (01:17)
[2020-03-22] MEDS ORDERED: Acetaminophen 325 MG TAB PO PRN (01:17)
[2020-03-22] MEDS ORDERED: HYDROcodone/Acetaminophen 5/325 mg Tablet PO PRN (01:17)
[2020-03-22] MEDS ORDERED: Labetalol HCl 100 MG/20 ML VIAL SLOW IVP PRN (01:17)
[2020-03-22] MEDS ORDERED: Guaifenesin DM 100-10/5 ML UDCUP PO PRN (01:17)
[2020-03-22] MEDS ORDERED: hydrALAZINE 20 MG/ML VIAL SLOW IVP PRN (01:17)
[2020-03-22] MEDS ORDERED: cloNIDine 0.1 MG TAB PO PRN ×2 (01:17→15:41)
[2020-03-22] MEDS ORDERED: OXYCONTIN 40 MG PO PRN (01:18)
--- NOTE | 2020-03-22 01:23 | PDOC.HHP ---
Hospitalist HPI - History of Present Illness Nausea, vomiting, weakness History of Present Illness: Patient is a 79 year old female with PMH GERD, HTN, chronic back pain who presents to ED for nausea, vomiting, abdominal pain, weakness x 1 week. She was here last week for similar complaints, imaging and labs unremarkable and patient discharged home. Today in ED, labs significant for Cl 90, Na 120 (was 126 on 03/16/20). She does not feel able to go home due to continued symptoms. She takes desmopressin daily 0.05mg qHS, presumably for DI, sees Dr Viveros, she reports very frequent dark urine and has urinated 4-5 times since coming to ED. Otherwise, denies chest pain, no SOB, no fever, UA in ED negative for infectious signs, patient admitted for further workup. Hospitalist ROS - Review of Systems Constitutional: reports: weakness, malaise. denies: fever, chills, sweats, other Eyes: denies: pain, vision change, conjunctivae inflammation, eyelid inflammation, redness, other ENT: denies: ear pain, ear discharge, nose pain, nose discharge, nose congestion , mouth pain, mouth swelling, throat pain, throat swelling, other Respiratory: denies: cough, dry, shortness of breath, hemoptysis, SOB with excertion, pleuritic pain, sputum, wheezing, other Cardiovascular: denies: chest pain, palpitations, orthopnea, paroxysmal noc. dyspnea, edema, light headedness, other Gastrointestinal: reports: nausea, vomiting, abdominal pain. denies: diarrhea, constipation, melena, hematochezia, other Genitourinary: denies: dysuria, frequency, incontinence, hematuria, retention, other Musculoskeletal: denies: neck pain, shoulder pain, arm pain, back pain, hand pain, leg pain, foot pain, other Skin: denies: rash, lesions, jose armando, bruising, other Neurological: denies: weakness, numbness, incoordination, change in speech, confusion, seizures, other All other systems reviewed; all pertinent +/- noted in HPI/Subj - Medication Medications: reviewed, see admission documents and med rec Hospitalist History - Past Medical History Other Medical History: GERD, HTN, chronic back pain - Past Surgical History Other Surgical History: RIGHT KNEE SURGERY, ABD SX TO REPAIR TORN MESH, Surgical history of appendectomy , Surgical history of hernia repair, Surgical history of hysterectomy, Surgical history of orthopedic surgery, LEFT HIP. - Family History Other Family History: reviewed and not relevant - Social History Smoking Status: Never smoker Alcohol: reports: None Drugs: reports: none - Exam General Appearance: NAD, awake alert Eye: PERRL, anicteric sclera ENT: normocephalic atraumatic, no oropharyngeal lesions, moist mucosa Neck: supple, symmetric, no JVD, no thyromegaly, no lymphadenopathy, no carotid bruit Heart: RRR, no murmur, no gallops, no rubs, normal peripheral pulses Respiratory: CTAB, no wheezes, no rales, no ronchi, normal chest expansion, no tachypnea, normal percussion Gastrointestinal: soft, non-tender, non-distended, normal bowel sounds, no palpable masses, no hepatomegaly, no splenomegaly, no bruit Extremities: no cyanosis, no clubbing, no edema Skin: normal turgor, no lesions, no rashes Neurological: cranial nerve grossly intact, normal sensation to touch, no weakness, no focal deficits, no new deficit Musculoskeletal: normal tone, normal strength, no muscle wasting Psychiatric: normal affect, normal behavior, A&O x 3 Hospitalist Results - Labs Result Diagrams: 03/21/20 19:45 03/21/20 19:45 Lab results: WBC 7.3 thou/uL (4.8-10.8) 03/21/20 19:45 Hgb 12.8 g/dL (12.0-16.0) 03/21/20 19:45 Hct 37.0 % (36.0-47.0) 03/21/20 19:45 MCV 92.9 fL (78.0-98.0) 03/21/20 19:45 Plt Count 246 thou/uL (130-400) 03/21/20 19:45 Neutrophils % 80.2 % (42.0-75.0) H 03/21/20 19:45 Sodium 120 mmol/L (136-145) L 03/21/20 19:45 Potassium 4.0 mmol/L (3.5-5.1) 03/21/20 19:45 Chloride 90 mmol/L (98-107) L 03/21/20 19:45 Carbon Dioxide 23 mmol/L (23-31) 03/21/20 19:45 BUN 11 mg/dL (9.8-20.1) 03/21/20 19:45 Creatinine 0.69 mg/dL (0.6-1.1) 03/21/20 19:45 Glucose 109 mg/dL (83-110) 03/21/20 19:45 Calcium 9.1 mg/dL (7.8-10.44) 03/21/20 19:45 Total Bilirubin 0.3 mg/dL (0.2-1.2) 03/21/20 19:45 AST 24 U/L (5-34) 03/21/20 19:45 ALT 19 U/L (8-55) 03/21/20 19:45 Alkaline Phosphatase 68 U/L (40-110) 03/21/20 19:45 Serum Total Protein 6.6 g/dL (6.0-8.3) 03/21/20 19:45 Albumin 4.0 g/dL (3.4-4.8) 03/21/20 19:45 Lipase 18 U/L (8-78) 03/21/20 19:45 Urine Ketones Negative mg/dL (Negative) 03/21/20 19:00 Urine Blood Negative (Negative) 03/21/20 19:00 Urine Nitrite Negative (Negative) 03/21/20 19:00 Ur Leukocyte Esterase Negative Christina/uL (Negative) 03/21/20 19:00 Additional comment: VITAL SIGNS Deandra Mar 21, 2020 23:00 SHARMIN Ace Brandi BP: 123/65 MAP: 84 Pulse: 69 Resp: 18 O2 sat: 96 on (Room Air) Time: 03/21/2020 23:00. VITAL SIGNS [facility] Mar 21, 2020 23:30 SHARMIN Ace Brandi BP: 128/60 MAP: 82 Pulse: 64 Resp: 18 O2 sat: 99 on (Room Air) Time: 03/21/2020 23:30. abdominal CT performed but not yet read Hospitalist H&P A/P - Plan Plan: Patient is a 79 year old female with PMH GERD, HTN, chronic back pain who presents to ED for nausea, vomiting, abdominal pain, weakness x 1 week. # hyponatremia - worse than last weak, symptoms appear to be worsening as well, admit to floor, continue home medications, consult Dr Viveros for the morning. - received IVF in ED, follow up BMP in AM to see effect of this before further attempting to correct - continue current dose of DDAVP for now # HTN - continue home meds # abdominal pain - follow up abdominal CT
[2020-03-22 02:12] VITALS: BMI 22.9
[2020-03-22 05:18] LABS: #Basophils 0.1 thou/uL (0.0-0.2); #Lymphocytes 1.4 thou/uL (1.20-3.40); #Monocytes 0.6 thou/uL (0.11-0.59); #Neutrophils 2.6 thou/uL (1.40-6.50); %Basophils 1.8 % (0.0-1.0); %Lymphocytes 29.6 % (21.0-51.0); %Monocytes 12.7 % (0.0-10.0); %Neutrophils 54.9 % (42.0-75.0); Hemoglobin 11.9 g/dL (12.0-16.0); Mean Corpuscular HGB CONC 33.8 g/dL (32.0-36.0); Mean Corpuscular Hemoglobin 31.2 pg (27.0-31.0); Mean Corpuscular Volume 92.4 fL (78.0-98.0); Mean Platelet Volume 5.8 fL (7.4-10.4); Platelet Count 249 thou/uL (130-400); RBC Distribution Width 11.2 % (11.5-14.5); Red Blood Cell (RBC) Count 3.82 mill/uL (4.20-5.40); White Blood Cell (WBC) Count 4.7 thou/uL (4.8-10.8)
[2020-03-22 05:39] LABS: Anion Gap 11 mmol/L (10-20); BUN (Urea Nitrogen) 7 mg/dL (9.8-20.1); Calc. Creatinine Clearance 78 mL/min (70-130); Calcium 9.2 mg/dL (7.8-10.44); Carbon Dioxide 25 mmol/L (23-31); Chloride 99 mmol/L (98-107); Estimated GFR-MDRD 82; Glucose 95 mg/dL (83-110); Magnesium 1.4 mg/dL (1.6-2.6); Potassium 4.1 mmol/L (3.5-5.1); Sodium 131 mmol/L (136-145)
[2020-03-22] MEDS: oxyCODONE ER 20 MG TAB PO PRN ×3 (06:10→21:29)
[2020-03-22] MEDS: Carvedilol 6.25 MG TAB PO SCH ×2 (07:57→20:05)
[2020-03-22] MEDS: Lisinopril 20 MG TAB PO SCH ×2 (07:58→17:21)
--- NOTE | 2020-03-22 08:36 | CT ---
CT ABDOMEN AND PELVIS PERFORMED WITH CONTRAST: HISTORY: Generalized abdominal pain. History of appendectomy and hysterectomy. COMPARISON: A 03/16/2020 exam. FINDINGS: The lung bases are clear. The liver and spleen appear unremarkable. Pancreas is atrophic. The gallbladder is normal in size. Some mild intra- and extrahepatic biliary ductal prominence. This was reported as stable as compare d to a 2015 exam on the prior report. Tiny hypodensity within the right lobe of the liver is most li dillan a cyst. Right and left adrenal glands and right and left kidneys are normal in size. Hypodensity involving t he lower pole of the right kidney is most compatible with a cyst. There is no significant periaortic or mesenteric adenopathy. A moderate amount of stool is present. Small bowel loops within the pelv is appear less prominent than they did on the prior exam. No pelvic lymphadenopathy or mass. The ap pendix is not definitively identified. A left hip prosthesis is present. Some atrophy of the musculature on this side is noted. IMPRESSION: No acute abnormalities of the abdomen. Slightly prominent small bowel loops noted on the previous exam have resolved. The biliary ductal prominence is stable. POS: [facility]
[2020-03-22] MEDS ORDERED: Magnesium 2 GM/50 ML 2 GM in Premix Bag 1 BAG IVPB SCH (10:00)
[2020-03-22 11:03] LABS: ALT (SGPT) 18 U/L (8-55); AST (SGOT) 19 U/L (5-34); Albumin 3.7 g/dL (3.4-4.8); Alkaline Phosphatase 63 U/L (40-110); Bilirubin, Direct 0.2 mg/dL (0.1-0.3); Bilirubin, Total 0.2 mg/dL (0.2-1.2); CRP (Inflammatory) Less than 0.50 mg/dL (= or < 0.5); Protein, Total 5.9 g/dL (6.0-8.3)
[2020-03-22] MEDS ORDERED: Donnatal Elixir 16.2 MG/5 ML UDCUP PO PRN (13:00)
--- NOTE | 2020-03-22 13:19 | PDOC.HOSPP ---
- Subjective Encounter Date: 03/22/20 Encounter Time: 10:10 Subjective: pt still had some nausea, but able to hold her breakfast. renal is visiting her. appears that she has chronic hyponatremia. Na this am improved, will stop DDAVP. - Objective Vital Signs & Weight: Vital Signs (12 hours) Temp Pulse Resp BP BP Pulse Ox 03/22/20 11:25 97.7 F 65 16 95/55 L 94 L 03/22/20 08:00 96 03/22/20 07:58 138/85 03/22/20 07:57 138/85 03/22/20 07:30 98.7 F 61 14 138/85 96 Weight Weight 160 lb Result Diagrams: 03/22/20 05:10 03/22/20 05:10 Hospitalist ROS - Medication Medications: Active Medications Generic Name Dose Route Start Last Admin Trade Name Freq PRN Reason Stop Dose Admin Hydrocodone Bitart/Acetaminophen 1 tab 03/22/20 01:17 03/22/20 07:58 [place] 5/325 PO 1 tab Q4H PRN Administration Moderate Pain (4-6) Carvedilol 6.25 mg 03/22/20 09:00 03/22/20 07:57 Coreg PO 6.25 mg BID DRAKE Administration Magnesium Sulfate 2 gm/ Device 50 mls @ 50 mls/hr 03/22/20 10:00 03/22/20 11: 05 IVPB 03/22/20 14:00 50 mls NOW DRAKE Administration Lisinopril 20 mg 03/22/20 08:00 03/22/20 07:58 Zestril PO 20 mg BID-WM DRAKE Administration Oxycodone HCl 40 mg 03/22/20 02:42 03/22/20 06:10 Oxycontin PO 40 mg Q8H PRN Administration Pain Pantoprazole Sodium 40 mg 03/22/20 09:00 03/22/20 07:57 Protonix PO 40 mg DAILY DRAKE Administration - Exam General Appearance: NAD, awake alert Eye: PERRL ENT: normocephalic atraumatic Neck: supple Heart: RRR Respiratory: CTAB, normal chest expansion Gastrointestinal: soft, normal bowel sounds Neurological: no focal deficits Psychiatric: A&O x 3 Hosp A/P - Plan Patient is a 79 year old female with PMH GERD, HTN, chronic back pain who presents to ED for nausea, vomiting, abdominal pain, weakness x 1 week. # hyponatremia - worse than last weak, symptoms appear to be worsening as well, admit to floor, -Dr Viveros seen her this morning. -improving. - stop DDAVP for now # HTN - continue home meds--coreg and lisinopril. Nausea- seems better. feels not related hyponatremia -Ct-abd -- no abn - LFT and lipase wnl. dispo -- 1 to 2 days to home
[2020-03-22] MEDS ORDERED: Polyethylene Glycol 3350 17 GM Packet PO PRN (15:41)
[2020-03-22] MEDS ORDERED: Dicyclomine 20 MG TAB PO PRN (15:41)
[2020-03-22] MEDS: HYDROcodone/Acetaminophen 7.5/325 mg Tablet PO SCH (17:21)
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
[2020-03-22] MEDS: Cyproheptadine 4 MG TAB PO SCH ×2 (20:05→21:36)
[2020-03-22] MEDS ORDERED: Desmopressin 0.2 mg Tablet PO SCH (21:00)
[2020-03-22] MEDS ORDERED: Amlodipine 5 MG TAB PO SCH (21:00)
[2020-03-22] MEDS ORDERED: DEXLANSOPRAZOLE PO SCH (21:00)
[2020-03-22] MEDS: Cyclobenzaprine 10 MG TAB PO PRN (21:28)
[2020-03-23] MEDS: HYDROcodone/Acetaminophen 7.5/325 mg Tablet PO SCH ×3 (02:21→11:17)
[2020-03-23] MEDS: Cyclobenzaprine 10 MG TAB PO PRN ×2 (05:01→13:35)
[2020-03-23 05:16] LABS: #Basophils 0.1 thou/uL (0.0-0.2); #Eosinphils 0.1 thou/uL (0.0-0.7); #Monocytes 0.7 thou/uL (0.11-0.59); #Neutrophils 2.5 thou/uL (1.40-6.50); %Eosinophils 2.6 % (0.0-10.0); %Lymphocytes 36.8 % (21.0-51.0); %Monocytes 12.8 % (0.0-10.0); %Neutrophils 46.8 % (42.0-75.0); Hemoglobin 11.7 g/dL (12.0-16.0); Mean Corpuscular HGB CONC 33.6 g/dL (32.0-36.0); Mean Corpuscular Hemoglobin 31.4 pg (27.0-31.0); Mean Corpuscular Volume 93.5 fL (78.0-98.0); Mean Platelet Volume 6.2 fL (7.4-10.4); Platelet Count 241 thou/uL (130-400); RBC Distribution Width 11.6 % (11.5-14.5); Red Blood Cell (RBC) Count 3.73 mill/uL (4.20-5.40); White Blood Cell (WBC) Count 5.4 thou/uL (4.8-10.8)
[2020-03-23 05:36] LABS: Anion Gap 10 mmol/L (10-20); BUN (Urea Nitrogen) 14 mg/dL (9.8-20.1); Calc. Creatinine Clearance 71 mL/min (70-130); Calcium 9.1 mg/dL (7.8-10.44); Carbon Dioxide 27 mmol/L (23-31); Chloride 100 mmol/L (98-107); Estimated GFR-MDRD 74; Glucose 93 mg/dL (83-110); Magnesium 1.8 mg/dL (1.6-2.6); Potassium 4.5 mmol/L (3.5-5.1); Sodium 132 mmol/L (136-145)
[2020-03-23] MEDS: Lisinopril 20 MG TAB PO SCH (08:32)
[2020-03-23] MEDS: Cyproheptadine 4 MG TAB PO SCH ×2 (08:32→14:03)
[2020-03-23] MEDS: oxyCODONE ER 20 MG TAB PO PRN (08:33)
[2020-03-23] MEDS: Carvedilol 6.25 MG TAB PO SCH (08:33)
[2020-03-23 12:59] VITALS: BP 109/72; TEMP 98.3
--- NOTE | 2020-03-23 21:47 | DIS ---
DATE OF ADMISSION: 03/21/2020 DATE OF DISCHARGE: 03/23/2020 DISCHARGE DIAGNOSES: 1. Hyponatremia, which is a chronic one and she is on DDAVP and follows with Dr. Viveros, windows systems architect, periodically. 2. Hypertension. 3. Intractable nausea that is resolved with antiemetics. IMAGING STUDIES: CT of abdomen did not show any abnormality. LABORATORY DATA: Liver function tests and lipase are in the normal range. Her sodium initially was in the 120 range, improved to 131, 132 on the day of discharge. She will continue to take DDAVP for chronic hyponatremia and follow with Dr. Viveros. SOCIAL SECURITY BENEFITS INTERVIEWER: Dr. Viveros, windows systems architect. PHYSICAL EXAMINATION: VITAL SIGNS: On the day of discharge, temperature 98.3, pulse 60, blood pressure 109/72, saturating 95% on room air. GENERAL: The patient is alert, oriented. No nausea. She is handling her p.o. intake well. She is agreeable for discharge plan today. HOSPITAL COURSE: Please refer to history and physical for more details. Briefly, a 79-year-old female presented with intractable nausea, vomiting, along with hyponatremia that is worse from her baseline. After supportive measures with IV fluid as well as DDAVP, her sodium improved to 131. Clinically, she is better now, will be discharged home today. DISCHARGE INSTRUCTIONS: 1. Activity: As tolerated. 2. Diet: Regular diet. FOLLOWUP: 1. Follow up with Dr. Viveros for a routine periodic check of sodium level. 2. Follow up with PCP in 1 week. TIME SPENT: Discharge time took over 35 minutes. Job ID: [id number] [facility]
== END 2020-03-23 14:48 | disposition home or self-care (01) | DRG 641 ==
LOC: ERS 18:40 → SURG A 23:39
PROVIDERS: ADMIT Internal Medicine; ATTEND Internal Medicine
DX: E87.1 Hypo-osmolality and hyponatremia (principal); K21.9 Gastro-esophageal reflux disease without esophagitis; M54.5 Low back pain; G89.29 Other chronic pain; M81.0 Age-related osteoporosis without current pathological fracture; R11.2 Nausea with vomiting, unspecified; Z90.49 Acquired absence of other specified parts of digestive tract; Z90.710 Acquired absence of both cervix and uterus; Z88.0 Allergy status to penicillin; Z88.5 Allergy status to narcotic agent; Z88.8 Allergy status to other drugs, medicaments and biological substances
CPT/HCPCS: 36415; 74177; 80048; 80053; 80076; 81003; 82728; 83690; 83735; 85025; 85379; 86140; 96361; 96374; 96375; J2405; J3010; J3475; Q9967

== ENCOUNTER 2020-08-05 16:00 | Emergency (ER) | payer MEDICARE ==
[2020-08-05 18:12] LABS: ALT (SGPT) 17 U/L (8-55); AST (SGOT) 23 U/L (5-34); Albumin 4.1 g/dL (3.4-4.8); Alkaline Phosphatase 84 U/L (40-110); Anion Gap 12 mmol/L (10-20); BUN (Urea Nitrogen) 18 mg/dL (9.8-20.1); Bilirubin, Total 0.2 mg/dL (0.2-1.2); Calc. Creatinine Clearance 0 mL/min (70-130); Calcium 9.5 mg/dL (7.8-10.44); Carbon Dioxide 27 mmol/L (23-31); Chloride 100 mmol/L (98-107); Estimated GFR-MDRD 76; Globulin 2.8 g/dL (2.4-3.5); Glucose 132 mg/dL (83-110); Potassium 4.1 mmol/L (3.5-5.1); Protein, Total 6.9 g/dL (6.0-8.3); Sodium 135 mmol/L (136-145)
== END 2020-08-05 20:00 | disposition home or self-care (01) ==
LOC: ERS 16:00
DX: R10.9 Unspecified abdominal pain (principal); K21.9 Gastro-esophageal reflux disease without esophagitis; I10 Essential (primary) hypertension; G89.29 Other chronic pain; Z79.899 Other long term (current) drug therapy
CPT/HCPCS: 36415; 80053; 99284

== ENCOUNTER 2020-10-07 06:55 | Emergency (ER) | payer MEDICARE ==
[2020-10-07 08:09] LABS: #Eosinphils 0.1 thou/uL (0.0-0.7); #Lymphocytes 1.3 thou/uL (1.20-3.40); #Monocytes 0.7 thou/uL (0.11-0.59); #Neutrophils 4.3 thou/uL (1.40-6.50); %Basophils 0.2 % (0.0-1.0); %Eosinophils 0.8 % (0.0-10.0); %Lymphocytes 20.9 % (21.0-51.0); %Monocytes 10.3 % (0.0-10.0); %Neutrophils 67.9 % (42.0-75.0); Hemoglobin 12.5 g/dL (12.0-16.0); Mean Corpuscular HGB CONC 32.9 g/dL (32.0-36.0); Mean Corpuscular Hemoglobin 29.6 pg (27.0-31.0); Mean Corpuscular Volume 89.8 fL (78.0-98.0); Mean Platelet Volume 7.1 fL (7.4-10.4); Platelet Count 216 thou/uL (130-400); RBC Distribution Width 11.2 % (11.5-14.5); Red Blood Cell (RBC) Count 4.22 mill/uL (4.20-5.40); White Blood Cell (WBC) Count 6.3 thou/uL (4.8-10.8)
[2020-10-07 08:25] LABS: ALT (SGPT) 32 U/L (8-55); AST (SGOT) 28 U/L (5-34); Albumin 3.7 g/dL (3.4-4.8); Alkaline Phosphatase 98 U/L (40-110); Anion Gap 14 mmol/L (10-20); BUN (Urea Nitrogen) 14 mg/dL (9.8-20.1); Bilirubin, Total 0.5 mg/dL (0.2-1.2); Calc. Creatinine Clearance 0 mL/min (70-130); Carbon Dioxide 26 mmol/L (23-31); Chloride 100 mmol/L (98-107); Globulin 2.7 g/dL (2.4-3.5); Glucose 97 mg/dL (83-110); Potassium 4.1 mmol/L (3.5-5.1); Protein, Total 6.4 g/dL (6.0-8.3); Sodium 136 mmol/L (136-145)
[2020-10-07] MEDS ORDERED: Ondansetron PF 4 MG/2 ML Vial ONE (08:58)
--- NOTE | 2020-10-07 09:18 | RAD ---
PORTABLE CHEST: Date: 10/07/2020 INDICATION: Dyspnea. COMPARISON: 06/06/2020. FINDINGS: Lung cole appear well aerated and clear. No infiltrate identified. No evidence of vascular congesti on or edema. Heart and mediastinum unremarkable. IMPRESSION: No acute lung process. POS: AGW
--- NOTE | 2020-10-12 13:37 | EKG ---
Test Reason : Blood Pressure : / mmHG Vent. Rate : 095 BPM Atrial Rate : 095 BPM P-R Int : 194 ms QRS Dur : 080 ms QT Int : 338 ms P-R-T Axes : 084 045 024 degrees QTc Int : 424 ms Normal sinus rhythm with sinus arrhythmia Nonspecific ST abnormality Abnormal ECG Confirmed by MARCIN PATRICIA, ENRIQUE ([id number]), publication editor LALY CONRAD ([id number]) on 10/12/2020 1:37:12 PM Referred By: Confirmed By:ENRIQUE BURCH MD
== END 2020-10-07 10:15 | disposition home or self-care (01) ==
LOC: ERS 06:55
DX: R06.00 Dyspnea, unspecified (principal); I10 Essential (primary) hypertension; R11.0 Nausea; Z79.899 Other long term (current) drug therapy; K21.9 Gastro-esophageal reflux disease without esophagitis
CPT/HCPCS: 36415; 71045; 80053; 83880; 84484; 85025; 93005; 96374; J2405

== ENCOUNTER 2020-10-08 09:30 | Outpatient (CLI) | payer MEDICARE ==
--- NOTE | 2020-10-09 11:25 | NM ---
EXAM: NM I-123 Thyroid Uptake/Scan DATE: 10/08/2020 10:00 AM INDICATION: Concern for thyrotoxicosis without crisis COMPARISON: None. FINDING: There is markedly diminished activity seen within the thyroid gland. Reportedly, the patien t had an episode of emesis following administration of I-123 radiopharmaceutical. The patient adamantly requested that she undergo imaging for the examination, even after explanation from the nuc lear medicine division order technician and the radiologists at [facility]. Dr. Perez office will be contacted concerning this nondiagnostic evaluation. The examination is nondiagnostic due to diminishe d ingestion of the I-123. IMPRESSION:Nondiagnostic thyroid uptake and scan. Recommend repeat examination.
== END 2020-10-08 09:31 | disposition home or self-care (01) ==
LOC: NM 09:30
PROVIDERS: ATTEND Internal Medicine Endocrinology, Diabetes & Metabolism
DX: E05.90 Thyrotoxicosis, unspecified without thyrotoxic crisis or storm (principal)
CPT/HCPCS: 78014; A9516

== ENCOUNTER 2020-11-14 19:18 | Observation (INO) | payer MEDICARE ==
--- NOTE | 2020-11-14 20:12 | CT ---
CT HEAD WITHOUT CONTRAST: 11/14/20 INDICATIONS: Mental status change. Mild cortical volume loss. Ventricles have normal size and position. No evidence of intracranial mass or hemorrhage. No evidence of infract. The paranasal sinuses are tony ar. IMPRESSION: No acute abnormality. POS: AGW
[2020-11-14 20:23] LABS: #Lymphocytes 1.4 thou/uL (1.20-3.40); #Monocytes 0.7 thou/uL (0.11-0.59); #Neutrophils 4.7 thou/uL (1.40-6.50); %Basophils 0.4 % (0.0-1.0); %Eosinophils 0.7 % (0.0-10.0); %Lymphocytes 20.7 % (21.0-51.0); %Monocytes 9.6 % (0.0-10.0); %Neutrophils 68.5 % (42.0-75.0); Hemoglobin 11.2 g/dL (12.0-16.0); Mean Corpuscular HGB CONC 33.1 g/dL (32.0-36.0); Mean Corpuscular Hemoglobin 30.1 pg (27.0-31.0); Mean Corpuscular Volume 90.9 fL (78.0-98.0); Mean Platelet Volume 6.5 fL (7.4-10.4); Platelet Count 260 thou/uL (130-400); RBC Distribution Width 12.3 % (11.5-14.5); Red Blood Cell (RBC) Count 3.71 mill/uL (4.20-5.40); White Blood Cell (WBC) Count 6.9 thou/uL (4.8-10.8)
--- NOTE | 2020-11-14 20:30 | RAD ---
PORTABLE CHEST: 11/14/20 INDICATIONS: Malaise. COMPARISON: 10/07/20. The lung cole are clear. No evidence of infiltrate. Heart and mediastinum appear unremarkable. Vasc ular markings within normal range. Scoliotic curvature of the thoracic spine again noted. IMPRESSION: No acute process identified. POS: AGW
[2020-11-14 20:43] LABS: Acetaminophen Less than 6.0 mcg/mL (10.0-30.0); Alcohol Less than 10 mg/dL (Less than 10); Salicylate Less than 8.0 mg/dL (15.0-30.0)
[2020-11-14 20:44] LABS: ALT (SGPT) 14 U/L (8-55); AST (SGOT) 17 U/L (5-34); Albumin 3.6 g/dL (3.4-4.8); Alkaline Phosphatase 83 U/L (40-110); Anion Gap 10 mmol/L (10-20); BUN (Urea Nitrogen) 20 mg/dL (9.8-20.1); Bilirubin, Total 0.4 mg/dL (0.2-1.2); Calc. Creatinine Clearance 0 mL/min (70-130); Calcium 9.2 mg/dL (7.8-10.44); Carbon Dioxide 26 mmol/L (23-31); Chloride 105 mmol/L (98-107); Globulin 2.5 g/dL (2.4-3.5); Glucose 113 mg/dL (83-110); Potassium 4.3 mmol/L (3.5-5.1); Protein, Total 6.1 g/dL (5.8-8.1); Sodium 137 mmol/L (136-145)
[2020-11-14 21:05] LABS: Bacteria/HPF None Seen HPF (None Seen); Bilirubin Negative (Negative); Blood, Urine Negative (Negative); Clarity Clear (Clear); Glucose, Urine (Dipstick) Normal (Negative); Ketone, Urine Negative (Negative); Leukocyte 75 Leu/uL (Negative); Nitrite Negative (Negative); Protein, Urine (Dipstick) Negative (Neg-Trace); RBC/HPF None Seen HPF (0-3); Specific Gravity, Urine 1.014 (1.002-1.036); Squamous Epithelial 0-3 HPF (0-3); Urobilinogen Normal mg/dL (Less than 2); WBC/HPF 0-3 HPF (0-3); pH, Urine 6.5 (5.0-9.0)
[2020-11-14 21:14] LABS: Amphetamine Not Detected (NotDetected); Barbiturates Screen Not Detected (NotDetected); Benzodiazepine Screen Detected (NotDetected); Cocaine Metabolite Screen Not Detected (NotDetected); Medtox Control Line Valid? VALID (VALID); Medtox Reader # READER 4; Methadone Not Detected (NotDetected); Methamphetamine Not Detected (NotDetected); Opiate Screen Detected (NotDetected); Oxycodone Screen Detected (NotDetected); Phencyclidine (PCP) Not Detected (NotDetected); THC/Cannabinoid Screen Not Detected (NotDetected); Tricyclic Screen Not Detected (NotDetected)
--- NOTE | 2020-11-14 23:52 | PDOC.HHP ---
Hospitalist [facility] History of Present Illness: This is a 79-year-old female patient with a history of GERD, chronic back pain, hypertension who was brought in on account of altered mental status. Patient's family noted patient was becoming confused to the activated EMS. She is on several psychoactive medications and they were concerned that she must of taking her medications inappropriately. At the time of my evaluation patient was awake and alert and she did note having spilled some of her medication but was sitting she did not take them wrongly. Records indicate that patient has been intermittently becoming altered and this is a third occasion in about a week. As presentation BP was 142/67, pulse 82, respiratory 20, saturating 99 on room air. Temperature was 98.5. Labs showed mild anemia of 11.2, glucose 113, UA was negative, toxicology revealed opiates oxycodone propoxyphene and benzos. CT scan of the head was negative for any acute abnormality. Chest x-ray reviewed no acute intrathoracic process. She was not given any medication. Decision was made to admit her for observation. Allergies/Adverse Reactions: Allergy/AdvReac Type Severity Reaction Status Date / Time gabapentin Allergy Verified 06/06/20 22:40 ketorolac tromethamine Allergy Verified 06/06/20 22:40 [From Toradol] Penicillins Allergy Verified 06/06/20 22:40 Home Medications: Medication Instructions Recorded Confirmed Type Amlodipine Besylate [amLODIPine 5 mg PO DAILY 08/30/15 06/07/20 History Besylate] Carisoprodol [Soma] 350 mg PO QID PRN 08/30/15 06/07/20 History Carvedilol [Coreg] 6.25 mg PO DAILY 08/30/15 06/07/20 History Enalapril Maleate [Vasotec] 20 mg PO DAILY 08/30/15 06/07/20 History OxyCONTIN 40 mg PO Q8HR PRN 08/30/15 06/07/20 History HYDROcodone/Acetaminophen 7.5 mg PO Q6H PRN 06/07/20 06/07/20 History [Hydrocodone-Acetamin 7.5-325] Multivitamin [Multivitamins] 1 cap PO DAILY 06/07/20 06/07/20 History Past History: PMHx: PSHx: FHx: Social: Hospitalist HPI [facility] [[email or web address]] Constitutional: denies: fever, chills, sweats, weakness, malaise Respiratory: denies: cough, shortness of breath, hemoptysis Cardiovascular: denies: chest pain, palpitations, orthopnea, paroxysmal noc. dyspnea Gastrointestinal: denies: nausea, vomiting, abdominal pain, diarrhea Neurological: reports: confusion. denies: weakness, numbness, incoordination Hospitalist Exam General Appearance: awake alert Eye: PERRL, anicteric sclera ENT: normocephalic atraumatic Heart: RRR, no murmur, no gallops, no rubs Respiratory: CTAB, no wheezes, no rales, no ronchi Gastrointestinal: soft, non-tender, non-distended, normal bowel sounds Extremities: no cyanosis, no clubbing, no edema Neurological: cranial nerve grossly intact, no weakness, no focal deficits Psychiatric: normal affect, normal behavior, A&O x 3 Hospitalist Results Result Diagrams: 11/15/20 04:41 11/15/20 04:42 Lab results: Laboratory Last Values WBC 6.9 thou/uL (4.8-10.8) 11/14/20 20:13 RBC 3.71 mill/uL (4.20-5.40) L 11/14/20 20:13 Hgb 11.2 g/dL (12.0-16.0) L 11/14/20 20:13 Hct 33.7 % (36.0-47.0) L 11/14/20 20:13 MCV 90.9 fL (78.0-98.0) 11/14/20 20:13 MCH 30.1 pg (27.0-31.0) 11/14/20 20:13 MCHC 33.1 g/dL (32.0-36.0) 11/14/20 20:13 RDW 12.3 % (11.5-14.5) 11/14/20 20:13 Plt Count 260 thou/uL (130-400) 11/14/20 20:13 MPV 6.5 fL (7.4-10.4) L 11/14/20 20:13 Neutrophils % 68.5 % (42.0-75.0) 11/14/20 20:13 Lymphocytes % 20.7 % (21.0-51.0) L 11/14/20 20:13 Monocytes % 9.6 % (0.0-10.0) 11/14/20 20:13 Eosinophils % 0.7 % (0.0-10.0) 11/14/20 20:13 Basophils % 0.4 % (0.0-1.0) 11/14/20 20:13 Neutrophils # 4.7 thou/uL (1.40-6.50) 11/14/20 20:13 Lymphocytes # 1.4 thou/uL (1.20-3.40) 11/14/20 20:13 Monocytes # 0.7 thou/uL (0.11-0.59) H 11/14/20 20:13 Eosinophils # 0.0 thou/uL (0.0-0.7) 11/14/20 20:13 Basophils # 0.0 thou/uL (0.0-0.2) 11/14/20 20:13 Sodium 137 mmol/L (136-145) 11/14/20 20:13 Potassium 4.3 mmol/L (3.5-5.1) 11/14/20 20:13 Chloride 105 mmol/L (98-107) 11/14/20 20:13 Carbon Dioxide 26 mmol/L (23-31) 11/14/20 20:13 Anion Gap 10 mmol/L (10-20) 11/14/20 20:13 BUN 20 mg/dL (9.8-20.1) 11/14/20 20:13 Creatinine 0.68 mg/dL (0.6-1.1) 11/14/20 20:13 Estimated GFR (MDRD) 84 11/14/20 20:13 Glucose 113 mg/dL (83-110) H 11/14/20 20:13 Calcium 9.2 mg/dL (7.8-10.44) 11/14/20 20:13 Total Bilirubin 0.4 mg/dL (0.2-1.2) 11/14/20 20:13 AST 17 U/L (5-34) 11/14/20 20:13 ALT 14 U/L (8-55) 11/14/20 20:13 Alkaline Phosphatase 83 U/L (40-110) 11/14/20 20:13 Serum Total Protein 6.1 g/dL (5.8-8.1) 11/14/20 20:13 Albumin 3.6 g/dL (3.4-4.8) 11/14/20 20:13 Globulin 2.5 g/dL (2.4-3.5) 11/14/20 20:13 Albumin/Globulin Ratio 1.4 g/dL (1.2-2.2) 11/14/20 20:13 Urine Color Light-Yellow (Yellow) 11/14/20 20:45 Urine Clarity Clear (Clear) 11/14/20 20:45 Urine pH 6.5 (5.0-9.0) 11/14/20 20:45 Ur Specific [place] 1.014 (1.002-1.036) 11/14/20 20:45 Urine Protein Negative mg/dL (Neg-Trace) 11/14/20 20:45 Urine Glucose (UA) Normal mg/dL (Negative) 11/14/20 20:45 Urine Ketones Negative mg/dL (Negative) 11/14/20 20:45 Urine Blood Negative (Negative) 11/14/20 20:45 Urine Nitrite Negative (Negative) 11/14/20 20:45 Urine Bilirubin Negative (Negative) 11/14/20 20:45 Urine Urobilinogen Normal mg/dL (Less than 2) 11/14/20 20:45 Ur Leukocyte Esterase 75 Christina/uL (Negative) A 11/14/20 20:45 Urine RBC None Seen HPF (0-3) 11/14/20 20:45 Urine WBC 0-3 HPF (0-3) 11/14/20 20:45 Ur Squamous Epith Cells 0-3 HPF (0-3) 11/14/20 20:45 Urine Bacteria None Seen HPF (None Seen) 11/14/20 20:45 Salicylates Less than 8.0 mg/dL (15.0-30.0) L 11/14/20 20:13 Urine Opiates Screen Detected (NotDetected) H 11/14/20 20:45 Ur Oxycodone Screen Detected (NotDetected) H 11/14/20 20:45 Urine Methadone Screen Not Detected (NotDetected) 11/14/20 20:45 Ur Propoxyphene Screen Detected (NotDetected) H 11/14/20 20:45 Acetaminophen Less than 6.0 mcg/mL (10.0-30.0) L 11/14/20 20:13 Ur Barbiturates Screen Not Detected (NotDetected) 11/14/20 20:45 Ur Tricyclics Screen Not Detected (NotDetected) 11/14/20 20:45 Ur Phencyclidine Scrn Not Detected (NotDetected) 11/14/20 20:45 Ur Amphetamines Screen Not Detected (NotDetected) 11/14/20 20:45 U Methamphetamines Scrn Not Detected (NotDetected) 11/14/20 20:45 U Benzodiazepines Scrn Detected (NotDetected) H 11/14/20 20:45 U Cocaine Metab Screen Not Detected (NotDetected) 11/14/20 20:45 U Cannabinoids Screen Not Detected (NotDetected) 11/14/20 20:45 Drug Screen Comment () 11/14/20 20:45 Plasma Alcohol Less than 10 mg/dL (Less than 10) 11/14/20 20:13 Hospitalist H&P A/P Plan: This is a 79-year-old female patient with a history of chronic back pain, hypertension who was brought in on account of altered mental status. Acute encephalopathy This likely secondary to medication Patient fully awake and alert at the moment. We will monitor overnight Medication misuse Patient taking multiple medications for psychoactive effects. Discharge plan to include plans for ensuring safe medication use. Hypertension BP stable Resume medications once verified. Chronic back pain Gradually resume home medications Generalized weakness Patient looks weak and says she walks if a walker We will have a PT assessment in a.m. DVT prophylaxisLovenox CODE STATUSfull code.
[2020-11-15 03:13] VITALS: BMI 21.2
[2020-11-15] MEDS ORDERED: HYDROcodone/Acetaminophen 7.5/325 mg Tablet PO ONE (03:45)
[2020-11-15 05:03] LABS: #Lymphocytes 1.5 thou/uL (1.20-3.40); #Monocytes 0.6 thou/uL (0.11-0.59); #Neutrophils 3.7 thou/uL (1.40-6.50); %Basophils 0.6 % (0.0-1.0); %Eosinophils 0.5 % (0.0-10.0); %Lymphocytes 25.4 % (21.0-51.0); %Monocytes 10.6 % (0.0-10.0); Hemoglobin 11.5 g/dL (12.0-16.0); Mean Corpuscular HGB CONC 32.8 g/dL (32.0-36.0); Mean Corpuscular Hemoglobin 29.6 pg (27.0-31.0); Mean Corpuscular Volume 90.5 fL (78.0-98.0); Mean Platelet Volume 6.6 fL (7.4-10.4); Platelet Count 247 thou/uL (130-400); RBC Distribution Width 12.2 % (11.5-14.5); Red Blood Cell (RBC) Count 3.89 mill/uL (4.20-5.40); White Blood Cell (WBC) Count 5.8 thou/uL (4.8-10.8)
[2020-11-15 05:24] LABS: Anion Gap 12 mmol/L (10-20); BUN (Urea Nitrogen) 13 mg/dL (9.8-20.1); Calc. Creatinine Clearance 85 mL/min (70-130); Calcium 9.6 mg/dL (7.8-10.44); Carbon Dioxide 25 mmol/L (23-31); Chloride 105 mmol/L (98-107); Glucose 95 mg/dL (83-110); Sodium 138 mmol/L (136-145)
[2020-11-15] MEDS ORDERED: HYDROcodone/Acetaminophen 7.5/325 mg Tablet ONE ×2 (06:06→14:28)
[2020-11-15] MEDS ORDERED: hydrALAZINE 20 MG/ML VIAL SLOW IVP PRN ×2 (08:19→11:47)
[2020-11-15] MEDS ORDERED: hydrALAZINE 20 MG/ML VIAL ONE (09:25)
[2020-11-15 11:28] LABS: SARS-CoV-2 PCR by NAA Not Detected (NotDetected)
--- NOTE | 2020-11-15 11:43 | PDOC.HOSPP ---
- Subjective Encounter Date: 11/15/20 Subjective: Awake alert in no acute distress. - Objective Vital Signs & Weight: Vital Signs (12 hours) Temp Pulse Resp BP BP Pulse Ox 11/15/20 10:14 77 174/82 H 11/15/20 10:13 98.3 F 77 16 174/82 H 98 11/15/20 07:32 98.3 F 78 17 166/82 H 94 L 11/15/20 06:03 98.7 F 86 22 H 172/79 H 95 11/15/20 03:00 98.6 F 88 18 159/84 H 96 Weight Weight 144 lb Result Diagrams: 11/15/20 04:41 11/15/20 04:42 Hospitalist ROS - Medication Medications: Active Medications Generic Name Dose Route Start Last Admin Trade Name Freq PRN Reason Stop Dose Admin Hydralazine HCl 5 mg 11/15/20 08:19 11/15/20 10:14 Hydralazine 20 Mg/Ml Vial SLOW IVP 5 mg Q4H PRN Administration Hypertension Hospitalist Exam Vitals: Vital Signs (12 hours) Temp Pulse Resp BP BP Pulse Ox 11/15/20 10:14 77 174/82 H 11/15/20 10:13 98.3 F 77 16 174/82 H 98 11/15/20 07:32 98.3 F 78 17 166/82 H 94 L 11/15/20 06:03 98.7 F 86 22 H 172/79 H 95 11/15/20 03:00 98.6 F 88 18 159/84 H 96 Weight Weight 144 lb General Appearance: NAD Eye: PERRL, anicteric sclera ENT: normocephalic atraumatic Neck: supple Heart: RRR, no murmur Respiratory: CTAB, no wheezes, no rales Gastrointestinal: soft, non-tender, non-distended Hosp A/P (1) Confusion Code(s): R41.0 - DISORIENTATION, UNSPECIFIED Status: Acute (2) Chronic back pain Code(s): M54.9 - DORSALGIA, UNSPECIFIED; G89.29 - OTHER CHRONIC PAIN Status: Acute (3) Hypertension Code(s): I10 - ESSENTIAL (PRIMARY) HYPERTENSION Status: Chronic Qualifiers: Hypertension type: essential hypertension Qualified Code(s): I10 - Essential (primary) hypertension - Plan This is a 79-year-old female patient brought for change in mental status. There was a concern that she was taking her medications inappropriately. I did speak with him and he described her as shaking and grabbing the door, not communicating, sometimes stuttering. Today patient has clear mentation, she denies abusing her medications. Her is suspicious of her overusing her pain medications. We will continue observing her and I will order an EEG to rule out seizures. PT will be seeing her as well. I plan to reinstate her blood pressure medications. RN just reported to me that she spoke with the pharmacy and in actuality patient takes Coreg 6.253 times daily, enalapril 20 mg twice daily, amlodipine 10 mg once a day, the pharmacist did tell the RN that patient is not very consistent when it comes to refilling amlodipine and enalapril. I will start her on a lower dose of OxyContin and [place] as needed.
[2020-11-15] MEDS: HYDROcodone/Acetaminophen 7.5/325 mg Tablet PO PRN (14:30)
--- NOTE | 2020-11-15 14:48 | PDOC.EEG ---
Neurology EEG Report - Report Report: Patient was performed using 24 channel [employer] video digital EEG machine with 24 disc electrodes. This was a routine EEG recording. Digital analysis of the EEG was done for [place] and seizure detection which revealed no abnormalities. Background: The posterior background rhythm was not observed. Hyperventilation:. Not performed Photic stimulation: No significant response seen with photic stimulation. Sleep: Drowsiness and sleep are recorded during the entire recording. EEG diagnosis:: Normal sleep EEG. No electrographic seizures captured during the recording.
[2020-11-15] MEDS: Carvedilol 6.25 MG TAB PO SCH ×2 (16:12→20:03)
[2020-11-15] MEDS: oxyCODONE ER 20 MG TAB PO SCH (20:03)
[2020-11-15] MEDS: Lisinopril 20 MG TAB PO SCH (20:03)
[2020-11-16] MEDS: HYDROcodone/Acetaminophen 7.5/325 mg Tablet PO PRN (02:13)
[2020-11-16] MEDS: Carvedilol 6.25 MG TAB PO SCH ×2 (08:36→14:26)
[2020-11-16] MEDS: Lisinopril 20 MG TAB PO SCH (08:37)
[2020-11-16] MEDS ORDERED: Lisinopril 20 MG TAB PO SCH (09:00)
[2020-11-16] MEDS ORDERED: Amlodipine 5 MG TAB PO SCH ×2 (09:00)
[2020-11-16] MEDS ORDERED: Multivit, Therapeutic 1 TAB PO SCH (09:00)
[2020-11-16] MEDS ORDERED: Carvedilol 6.25 MG TAB PO SCH (09:00)
[2020-11-16] MEDS: oxyCODONE ER 20 MG TAB PO SCH (09:21)
[2020-11-16 11:18] VITALS: BP 129/75; TEMP 97.9
--- NOTE | 2020-11-16 12:19 | PDOC.DS.DS ---
Provider Date of Admission: 11/14/20 21:50 Admitting Provider: Yan Schaffer MD Primary Care Physician: Amadeo Sorto MD Course Hospital Course: 79-year-old female patient brought for change in mental status. There was a concern that she was taking her medications inappropriately. (1) Confusion Code(s): R41.0 - DISORIENTATION, UNSPECIFIED Status: Acute (2) Chronic back pain Code(s): M54.9 - DORSALGIA, UNSPECIFIED; G89.29 - OTHER CHRONIC PAIN Status: Acute (3) Hypertension Code(s): I10 - ESSENTIAL (PRIMARY) HYPERTENSION Status: Chronic Qualifiers: Hypertension type: essential hypertension Qualified Code(s): I10 - Essential (primary) hypertension Electroencephalogram is negative for any abnormal activity. Patient is on Xanax 350 mg 4 times a day as needed as well as [place] and OxyContin unclear whether she is getting prescription from primary care or pain management. When RN poke with the pharmacy and in actuality patient takes Coreg 6.253 times daily, enalapril 20 mg twice daily, amlodipine 10 mg once a day, the pharmacist did tell the RN that patient is not very consistent when it comes to refilling amlodipine and enalapril. I did not prescribe any narcotics at the time of discharge. mentally at baseline clinically sound enough to be discharged home today. Discharge time over 30 minutes. Resuscitation Status: 11/14/20 23:54 Resuscitation Status Routine Resuscitation Status: FULL: Full Resuscitation Lab Results: 11/15/20 04:41 11/15/20 04:42 Abnormal Lab Results - Last 48 hrs 11/14/20 20:13: Salicylates Less than 8.0 L, Acetaminophen Less than 6.0 L 11/14/20 20:13: RBC 3.71 L, Hgb 11.2 L, Hct 33.7 L, MPV 6.5 L, Lymphocytes % 20.7 L, Monocytes # 0.7 H 11/14/20 20:45: Urine Opiates Screen Detected H, Ur Oxycodone Screen Detected H, Ur Propoxyphene Screen Detected H, U Benzodiazepines Scrn Detected H 11/14/20 20:45: Ur Leukocyte Esterase 75 A 11/15/20 04:41: RBC 3.89 L, Hgb 11.5 L, Hct 35.2 L, MPV 6.6 L, Monocytes % 10.6 H, Monocytes # 0.6 H 11/15/20 04:42: Creatinine 0.57 L Vitals: Vital Signs (12 hours) Temp Pulse Resp BP BP BP Pulse Ox 11/16/20 11:15 97.9 F 79 16 129/75 96 11/16/20 08:37 145/84 H 11/16/20 08:36 145/84 H 11/16/20 08:35 83 145/84 H 11/16/20 07:32 98.2 F 83 16 145/84 H 95 11/16/20 04:00 97.8 F 77 16 165/76 H 96 Weight Weight 144 lb Physical Exam: The patient was seen and examined on the day of discharge. Patient is quite anxious to go home. She states that her son and the spouse will come and give her a ride back. She denies any taking any excessive me dications including pain medications. Hemodynamically stable mentally at baseline clinically sound enough to be discharged home today Plan Home Medications: Medication Instructions Recorded Confirmed Type Amlodipine Besylate [amLODIPine 5 mg PO DAILY 08/30/15 11/15/20 History Besylate] Carisoprodol [Soma] 350 mg PO QID PRN 08/30/15 11/15/20 History Carvedilol [Coreg] 6.25 mg PO DAILY 08/30/15 11/15/20 History Enalapril Maleate [Vasotec] 20 mg PO DAILY 08/30/15 11/15/20 History Multivitamin [Multivitamins] 1 cap PO DAILY 06/07/20 11/15/20 History Allergies: gabapentin Allergy (Verified 06/06/20 22:40) ketorolac tromethamine [From Toradol] Allergy (Verified 06/06/20 22:40) Penicillins Allergy (Verified 06/06/20 22:40) Activity:: Activity as Tolerated Nourishment:: Heart Healthy Diet Referrals: Amadeo Sorto MD [Primary Care Provider] - Disposition: HOME Quality CORE MEASURES:: N/A
--- NOTE | 2020-11-16 14:27 | EKG ---
Test Reason : Blood Pressure : / mmHG Vent. Rate : 082 BPM Atrial Rate : 082 BPM P-R Int : 158 ms QRS Dur : 088 ms QT Int : 344 ms P-R-T Axes : 079 078 053 degrees QTc Int : 401 ms Normal sinus rhythm with sinus arrhythmia Normal ECG Confirmed by ROGELIO FORD DO ([id number]), design editor LALY CONRAD ([id number]) on 11/16/2020 2:27:23 PM Referred By: Confirmed By:ROGELIO FORD DO
== END 2020-11-16 14:46 | disposition home or self-care (01) ==
LOC: ERS 19:18 → ERHOLD 21:50 → T4-A 11-15 18:08
PROVIDERS: ADMIT Student in an Organized Health Care Education/Training Program; ATTEND Internal Medicine
DX: G93.40 Encephalopathy, unspecified (principal); F19.90 Other psychoactive substance use, unspecified, uncomplicated; I10 Essential (primary) hypertension; G89.29 Other chronic pain; M54.9 Dorsalgia, unspecified; R53.1 Weakness; K21.9 Gastro-esophageal reflux disease without esophagitis; I45.9 Conduction disorder, unspecified; Z79.899 Other long term (current) drug therapy; Z88.0 Allergy status to penicillin; Z88.6 Allergy status to analgesic agent; Z88.8 Allergy status to other drugs, medicaments and biological substances; Z20.822 Contact with and (suspected) exposure to COVID-19
CPT/HCPCS: 70450; 71045; 80048; 80053; 80306; 80307; 85025 ×2; 93005; 95816; 95819; 95957; 97116; 97139 ×3; 99285; U0003; U0005; 36415; 81003; 81015; 87635; 96374; G0378; J0360

== ENCOUNTER 2021-07-29 18:53 | Emergency (ER) | payer MEDICARE ==
[2021-07-29 20:07] LABS: #Basophils 0.1 thou/uL (0.0-0.2); #Eosinphils 0.1 thou/uL (0.0-0.7); #Lymphocytes 1.3 thou/uL (1.20-3.40); #Monocytes 0.5 thou/uL (0.11-0.59); #Neutrophils 4.4 thou/uL (1.40-6.50); %Basophils 1.2 % (0.0-1.0); %Eosinophils 1.1 % (0.0-10.0); %Lymphocytes 21.1 % (21.0-51.0); %Monocytes 7.6 % (0.0-10.0); %Neutrophils 69.1 % (42.0-75.0); Hemoglobin 12.1 g/dL (12.0-16.0); Mean Corpuscular HGB CONC 33.2 g/dL (32.0-36.0); Mean Corpuscular Hemoglobin 31.4 pg (27.0-31.0); Mean Corpuscular Volume 94.5 fL (78.0-98.0); Mean Platelet Volume 6.3 fL (7.4-10.4); Platelet Count 241 thou/uL (130-400); RBC Distribution Width 12.1 % (11.5-14.5); Red Blood Cell (RBC) Count 3.85 mill/uL (4.20-5.40); White Blood Cell (WBC) Count 6.4 thou/uL (4.8-10.8)
[2021-07-29 20:32] LABS: ALT (SGPT) 19 U/L (8-55); AST (SGOT) 23 U/L (5-34); Alkaline Phosphatase 96 U/L (40-110); Anion Gap 11 mmol/L (10-20); BUN (Urea Nitrogen) 20 mg/dL (9.8-20.1); Bilirubin, Total 0.3 mg/dL (0.2-1.2); Calc. Creatinine Clearance 0 mL/min (70-130); Calcium 9.5 mg/dL (7.8-10.44); Carbon Dioxide 27 mmol/L (23-31); Chloride 102 mmol/L (98-107); Globulin 2.6 g/dL (2.4-3.5); Glucose 104 mg/dL (83-110); Potassium 4.2 mmol/L (3.5-5.1); Protein, Total 6.6 g/dL (5.8-8.1); Sodium 136 mmol/L (136-145)
== END 2021-07-29 21:01 | disposition home or self-care (01) ==
LOC: ERS 18:53
DX: I10 Essential (primary) hypertension (principal); Z79.899 Other long term (current) drug therapy; K21.9 Gastro-esophageal reflux disease without esophagitis
CPT/HCPCS: 36415; 80053; 84484; 85025; 93005

== ENCOUNTER 2021-09-22 21:18 | Emergency (ER) | payer MEDICARE ==
[2021-09-22] MEDS ORDERED: Morphine 4 MG/ML VIAL ONE (23:39)
[2021-09-22] MEDS ORDERED: Ondansetron PF 4 MG/2 ML Vial ONE (23:39)
[2021-09-23 00:32] LABS: #Eosinphils 0.1 thou/uL (0.0-0.7); #Lymphocytes 1.2 thou/uL (1.20-3.40); #Monocytes 0.4 thou/uL (0.11-0.59); #Neutrophils 9.4 thou/uL (1.40-6.50); %Basophils 0.4 % (0.0-1.0); %Eosinophils 0.5 % (0.0-10.0); %Lymphocytes 10.8 % (21.0-51.0); %Monocytes 3.8 % (0.0-10.0); %Neutrophils 84.5 % (42.0-75.0); Hemoglobin 12.8 g/dL (12.0-16.0); Mean Corpuscular Hemoglobin 30.4 pg (27.0-31.0); Mean Corpuscular Volume 92.1 fL (78.0-98.0); Mean Platelet Volume 6.2 fL (7.4-10.4); Platelet Count 259 thou/uL (130-400); RBC Distribution Width 11.7 % (11.5-14.5); Red Blood Cell (RBC) Count 4.22 mill/uL (4.20-5.40); White Blood Cell (WBC) Count 11.2 thou/uL (4.8-10.8)
[2021-09-23 00:43] LABS: INR-International Normal Ratio 1.2; Prothrombin Time 15.5 sec (12.0-14.7)
[2021-09-23 00:44] LABS: PTT 43.5 sec (22.9-36.1)
[2021-09-23 00:52] LABS: ALT (SGPT) 29 U/L (8-55); AST (SGOT) 29 U/L (5-34); Albumin 4.3 g/dL (3.4-4.8); Alkaline Phosphatase 112 U/L (40-110); Anion Gap 13 mmol/L (10-20); BUN (Urea Nitrogen) 19 mg/dL (9.8-20.1); Bilirubin, Total 0.5 mg/dL (0.2-1.2); Calc. Creatinine Clearance 0 mL/min (70-130); Calcium 9.7 mg/dL (7.8-10.44); Carbon Dioxide 25 mmol/L (23-31); Chloride 99 mmol/L (98-107); Globulin 3.1 g/dL (2.4-3.5); Glucose 121 mg/dL (83-110); Potassium 3.3 mmol/L (3.5-5.1); Protein, Total 7.4 g/dL (5.8-8.1); Sodium 134 mmol/L (136-145)
== END 2021-09-23 00:57 | disposition home or self-care (01) ==
LOC: ERS 21:18
DX: S00.83XA Contusion of other part of head, initial encounter (principal); M25.552 Pain in left hip; M25.512 Pain in left shoulder; K21.9 Gastro-esophageal reflux disease without esophagitis; I10 Essential (primary) hypertension; W01.198A Fall on same level from slipping, tripping and stumbling with subsequent striking against other object, initial encounter
CPT/HCPCS: 70450; 71045; 72125; 72170; 80053; 85025; 85610; 85730; 93005; 96374; 96375; J2270; J2405

== ENCOUNTER 2021-11-16 14:24 | Emergency (ER) | payer MEDICARE ==
[2021-11-16 15:31] LABS: #Basophils 0.1 thou/uL (0.0-0.2); #Eosinphils 0.1 thou/uL (0.0-0.7); #Lymphocytes 1.3 thou/uL (1.20-3.40); #Monocytes 0.5 thou/uL (0.11-0.59); #Neutrophils 5.3 thou/uL (1.40-6.50); %Eosinophils 1.5 % (0.0-10.0); %Lymphocytes 17.6 % (21.0-51.0); %Monocytes 7.3 % (0.0-10.0); %Neutrophils 72.5 % (42.0-75.0); Hemoglobin 12.2 g/dL (12.0-16.0); Mean Corpuscular HGB CONC 31.3 g/dL (32.0-36.0); Mean Corpuscular Volume 92.7 fL (78.0-98.0); Mean Platelet Volume 6.5 fL (7.4-10.4); Platelet Count 223 thou/uL (130-400); RBC Distribution Width 12.7 % (11.5-14.5); Red Blood Cell (RBC) Count 4.22 mill/uL (4.20-5.40); White Blood Cell (WBC) Count 7.3 thou/uL (4.8-10.8)
[2021-11-16 15:43] LABS: Bacteria/HPF None Seen HPF (None Seen); Bilirubin Negative (Negative); Blood, Urine Trace (Negative); Clarity Clear (Clear); Glucose, Urine (Dipstick) Normal (Negative); Ketone, Urine Trace mg/dL (Negative); Leukocyte Negative Leu/uL (Negative); Nitrite Negative (Negative); Protein, Urine (Dipstick) Negative (Neg-Trace); Specific Gravity, Urine 1.012 (1.002-1.036); Squamous Epithelial None Seen HPF (0-3); Urobilinogen Normal mg/dL (Less than 2); WBC/HPF 0-3 HPF (0-3); pH, Urine 7.5 (5.0-9.0)
[2021-11-16 15:51] LABS: ALT (SGPT) 55 U/L (8-55); AST (SGOT) 78 U/L (5-34); Albumin 4.4 g/dL (3.4-4.8); Alkaline Phosphatase 116 U/L (40-110); Anion Gap 14 mmol/L (10-20); BUN (Urea Nitrogen) 17 mg/dL (9.8-20.1); Bilirubin, Total 0.3 mg/dL (0.2-1.2); Calc. Creatinine Clearance 0 mL/min (70-130); Calcium 9.3 mg/dL (7.8-10.44); Carbon Dioxide 22 mmol/L (23-31); Chloride 101 mmol/L (98-107); Globulin 2.9 g/dL (2.4-3.5); Glucose 111 mg/dL (83-110); Lipase 9 U/L (8-78); Potassium 3.5 mmol/L (3.5-5.1); Protein, Total 7.3 g/dL (5.8-8.1); Sodium 133 mmol/L (136-145)
== END 2021-11-16 17:47 | disposition home or self-care (01) ==
LOC: ERS 14:24
DX: S32.502A Unspecified fracture of left pubis, initial encounter for closed fracture (principal); R31.29 Other microscopic hematuria; K21.9 Gastro-esophageal reflux disease without esophagitis; I10 Essential (primary) hypertension; I48.91 Unspecified atrial fibrillation; Z79.01 Long term (current) use of anticoagulants; Z79.899 Other long term (current) drug therapy; X58.XXXA Exposure to other specified factors, initial encounter
CPT/HCPCS: 36415; 74177; 80053; 81003; 81015; 83605; 83690; 85025; 93005; Q9967

== ENCOUNTER 2022-03-02 03:57 | Emergency (ER) | payer MEDICARE | END 2022-03-02 05:55 | disposition home or self-care (01) | LOC: ERS 03:57 | DX: R06.00 Dyspnea, unspecified (principal); R53.81 Other malaise; I48.91 Unspecified atrial fibrillation; I49.9 Cardiac arrhythmia, unspecified; I10 Essential (primary) hypertension; K21.9 Gastro-esophageal reflux disease without esophagitis; Z79.899 Other long term (current) drug therapy | CPT/HCPCS: 71045; 93005 ==

== ENCOUNTER 2022-03-21 06:14 | Emergency (ER) | payer MEDICARE ==
[2022-03-21] MEDS ORDERED: Morphine 4 MG/ML VIAL ONE ×2 (07:16→08:31)
[2022-03-21] MEDS ORDERED: Ketorolac Tromethamine 30 MG/ML VIAL ONE (07:17)
[2022-03-21] MEDS ORDERED: Dexamethasone 10 MG/ML VIAL ONE (07:17)
[2022-03-21 07:37] LABS: #Basophils 0.1 thou/uL (0.0-0.2); #Eosinphils 0.1 thou/uL (0.0-0.7); #Lymphocytes 1.6 thou/uL (1.20-3.40); #Monocytes 0.5 thou/uL (0.11-0.59); #Neutrophils 6.5 thou/uL (1.40-6.50); %Basophils 1.1 % (0.0-1.0); %Eosinophils 0.8 % (0.0-10.0); %Lymphocytes 18.1 % (21.0-51.0); %Monocytes 5.8 % (0.0-10.0); %Neutrophils 74.4 % (42.0-75.0); Hemoglobin 12.1 g/dL (12.0-16.0); Mean Corpuscular HGB CONC 28.2 g/dL (32.0-36.0); Mean Corpuscular Hemoglobin 26.8 pg (27.0-31.0); Mean Corpuscular Volume 94.8 fL (78.0-98.0); Mean Platelet Volume 6.4 fL (7.4-10.4); Platelet Count 248 thou/uL (130-400); RBC Distribution Width 12.7 % (11.5-14.5); Red Blood Cell (RBC) Count 4.52 mill/uL (4.20-5.40); White Blood Cell (WBC) Count 8.8 thou/uL (4.8-10.8)
[2022-03-21 07:56] LABS: Hypochromia SLIGHT = 6-15 cells (100X) (0-5/hpf); MDiff Complete? YES; Ovalocytes SLIGHT = 2-5 cells (100X) (0-1/hpf); Platelet Morphology Comment Appears Adequate; Polychromasia SLIGHT = 2-3 cells (100X) (0-2/hpf)
[2022-03-21 07:57] LABS: ALT (SGPT) 14 U/L (8-55); AST (SGOT) 21 U/L (5-34); Albumin 4.6 g/dL (3.4-4.8); Alkaline Phosphatase 78 U/L (40-110); Anion Gap 15 mmol/L (10-20); BUN (Urea Nitrogen) 13 mg/dL (9.8-20.1); Bilirubin, Total 0.5 mg/dL (0.2-1.2); Calc. Creatinine Clearance 0 mL/min (70-130); Carbon Dioxide 26 mmol/L (23-31); Chloride 96 mmol/L (98-107); Glucose 154 mg/dL (83-110); Lipase 6 U/L (8-78); Potassium 3.7 mmol/L (3.5-5.1); Protein, Total 7.6 g/dL (5.8-8.1); Sodium 133 mmol/L (136-145)
== END 2022-03-21 10:42 ==
LOC: ERS 06:14
DX: G89.29 Other chronic pain (principal); M54.50 Low back pain, unspecified; R05.9 Cough, unspecified; K21.9 Gastro-esophageal reflux disease without esophagitis; I10 Essential (primary) hypertension; I48.91 Unspecified atrial fibrillation; Z79.899 Other long term (current) drug therapy
CPT/HCPCS: 36415; 80053; 83690; 85025; 96374; 96375; 96376; J1100; J1885; J2270

== ENCOUNTER 2022-05-15 13:41 | Emergency (ER) | payer MEDICARE ==
[2022-05-15 14:35] LABS: #Eosinphils 0.1 thou/uL (0.0-0.7); #Lymphocytes 1.6 thou/uL (1.20-3.40); #Monocytes 0.5 thou/uL (0.11-0.59); #Neutrophils 2.4 thou/uL (1.40-6.50); %Basophils 0.8 % (0.0-1.0); %Eosinophils 1.8 % (0.0-10.0); %Lymphocytes 35.2 % (21.0-51.0); %Neutrophils 52.2 % (42.0-75.0); Hemoglobin 12.4 g/dL (12.0-16.0); Mean Corpuscular HGB CONC 32.5 g/dL (32.0-36.0); Mean Corpuscular Volume 95.4 fL (78.0-98.0); Mean Platelet Volume 6.7 fL (7.4-10.4); Platelet Count 211 thou/uL (130-400); Red Blood Cell (RBC) Count 3.99 mill/uL (4.20-5.40); White Blood Cell (WBC) Count 4.6 thou/uL (4.8-10.8)
[2022-05-15 14:54] LABS: ALT (SGPT) 11 U/L (8-55); AST (SGOT) 18 U/L (5-34); Albumin 4.1 g/dL (3.4-4.8); Alkaline Phosphatase 78 U/L (40-110); Anion Gap 13 mmol/L (10-20); BUN (Urea Nitrogen) 16 mg/dL (9.8-20.1); Bilirubin, Total 0.4 mg/dL (0.2-1.2); Calc. Creatinine Clearance 0 mL/min (70-130); Calcium 9.5 mg/dL (7.8-10.44); Carbon Dioxide 28 mmol/L (23-31); Chloride 98 mmol/L (98-107); Estimated GFR 76; Globulin 2.6 g/dL (2.4-3.5); Glucose 99 mg/dL (83-110); Lipase 6 U/L (8-78); Magnesium 1.8 mg/dL (1.6-2.6); Potassium 3.6 mmol/L (3.5-5.1); Protein, Total 6.7 g/dL (5.8-8.1); Sodium 135 mmol/L (136-145)
[2022-05-15 15:23] LABS: Bacteria/HPF None Seen HPF (None Seen); Bilirubin Negative (Negative); Blood, Urine Negative (Negative); Clarity Clear (Clear); Glucose, Urine (Dipstick) Normal (Negative); Ketone, Urine Negative (Negative); Leukocyte 75 Leu/uL (Negative); Nitrite Negative (Negative); Protein, Urine (Dipstick) Negative (Neg-Trace); RBC/HPF 0-3 HPF (0-3); Specific Gravity, Urine 1.006 (1.002-1.036); Squamous Epithelial None Seen HPF (0-3); Urobilinogen Normal mg/dL (Less than 2); WBC/HPF 0-3 HPF (0-3); pH, Urine 7.5 (5.0-9.0)
[2022-05-15 17:16] LABS: SARS-CoV-2 NAA Rapid Test Not Detected (NotDetected)
== END 2022-05-15 18:10 | disposition home or self-care (01) ==
LOC: ERS 13:41
DX: R19.7 Diarrhea, unspecified (principal); R53.1 Weakness; R11.2 Nausea with vomiting, unspecified; Z20.822 Contact with and (suspected) exposure to COVID-19; K21.9 Gastro-esophageal reflux disease without esophagitis; I10 Essential (primary) hypertension; Z79.899 Other long term (current) drug therapy
CPT/HCPCS: 0240U; 71045; 80053; 83690; 83735; 83880; 84484; 85025; 93005; 99285; 36415; 81003; 81015

== ENCOUNTER 2022-05-28 13:08 | Outpatient (CLI) | payer MEDICARE | END 2022-05-28 13:09 | disposition home or self-care (01) | LOC: BICMAMMO 13:08 | PROVIDERS: ATTEND Family Medicine | DX: Z12.31 Encounter for screening mammogram for malignant neoplasm of breast (principal); N63.21 Unspecified lump in the left breast, upper outer quadrant | CPT/HCPCS: 77063; 77067 ==

== ENCOUNTER 2022-05-31 13:31 | Emergency (ER) | payer MEDICARE ==
[2022-05-31 14:46] LABS: #Eosinphils 0.1 thou/uL (0.0-0.7); #Lymphocytes 1.1 thou/uL (1.20-3.40); #Monocytes 0.3 thou/uL (0.11-0.59); #Neutrophils 3.2 thou/uL (1.40-6.50); %Eosinophils 1.3 % (0.0-10.0); %Lymphocytes 23.8 % (21.0-51.0); Hemoglobin 12.5 g/dL (12.0-16.0); Mean Corpuscular HGB CONC 32.7 g/dL (32.0-36.0); Mean Corpuscular Hemoglobin 31.4 pg (27.0-31.0); Mean Corpuscular Volume 95.9 fL (78.0-98.0); Mean Platelet Volume 6.9 fL (7.4-10.4); Platelet Count 203 thou/uL (130-400); RBC Distribution Width 11.8 % (11.5-14.5); Red Blood Cell (RBC) Count 3.98 mill/uL (4.20-5.40); White Blood Cell (WBC) Count 4.7 thou/uL (4.8-10.8)
[2022-05-31 15:05] LABS: ALT (SGPT) 22 U/L (8-55); AST (SGOT) 26 U/L (5-34); Albumin 4.1 g/dL (3.4-4.8); Alkaline Phosphatase 68 U/L (40-110); Anion Gap 14 mmol/L (10-20); BUN (Urea Nitrogen) 16 mg/dL (9.8-20.1); Bilirubin, Total 0.6 mg/dL (0.2-1.2); Calc. Creatinine Clearance 0 mL/min (70-130); Calcium 9.6 mg/dL (7.8-10.44); Carbon Dioxide 27 mmol/L (23-31); Chloride 96 mmol/L (98-107); Estimated GFR 66; Globulin 2.4 g/dL (2.4-3.5); Glucose 98 mg/dL (83-110); Potassium 4.2 mmol/L (3.5-5.1); Protein, Total 6.5 g/dL (5.8-8.1); Sodium 133 mmol/L (136-145)
== END 2022-05-31 16:39 | disposition home or self-care (01) ==
LOC: ERS 13:31
DX: R06.02 Shortness of breath (principal); I10 Essential (primary) hypertension; I48.91 Unspecified atrial fibrillation; Z79.01 Long term (current) use of anticoagulants; Z79.899 Other long term (current) drug therapy
CPT/HCPCS: 36415; 71045; 80053; 83880; 84484; 85025; 93005

== ENCOUNTER 2022-07-08 18:49 | Emergency (ER) | payer MEDICARE ==
[~2022-07-08 18:49] MED LIST changes: -Iopamidol 370 76% 100 ML VIAL ONE; +Iopamidol-370 76% 500 ML 1 ML ONE
[2022-07-08 19:50] LABS: #Monocytes 0.4 thou/uL (0.11-0.59); #Neutrophils 4.9 thou/uL (1.40-6.50); %Basophils 0.3 % (0.0-1.0); %Eosinophils 0.1 % (0.0-10.0); %Lymphocytes 15.6 % (21.0-51.0); %Monocytes 6.4 % (0.0-10.0); %Neutrophils 77.5 % (42.0-75.0); Mean Corpuscular Hemoglobin 30.8 pg (27.0-31.0); Mean Corpuscular Volume 96.2 fL (78.0-98.0); Mean Platelet Volume 6.9 fL (7.4-10.4); Platelet Count 234 thou/uL (130-400); RBC Distribution Width 11.7 % (11.5-14.5); Red Blood Cell (RBC) Count 3.89 mill/uL (4.20-5.40); White Blood Cell (WBC) Count 6.4 thou/uL (4.8-10.8)
[2022-07-08 20:08] LABS: ALT (SGPT) 15 U/L (8-55); AST (SGOT) 19 U/L (5-34); Albumin 4.2 g/dL (3.4-4.8); Alkaline Phosphatase 82 U/L (40-110); Anion Gap 12 mmol/L (10-20); BUN (Urea Nitrogen) 17 mg/dL (9.8-20.1); Bilirubin, Total 0.6 mg/dL (0.2-1.2); Calc. Creatinine Clearance 0 mL/min (70-130); Calcium 9.8 mg/dL (7.8-10.44); Carbon Dioxide 26 mmol/L (23-31); Chloride 102 mmol/L (98-107); Estimated GFR 86; Globulin 2.4 g/dL (2.4-3.5); Glucose 108 mg/dL (83-110); Lipase Less than 4 U/L (8-78); Potassium 4.5 mmol/L (3.5-5.1); Protein, Total 6.6 g/dL (5.8-8.1); Sodium 135 mmol/L (136-145)
[2022-07-08] MEDS ORDERED: Furosemide 40 MG/4 ML VIAL ONE (21:54)
[2022-07-08] MEDS ORDERED: Lorazepam 2 MG/ML VIAL ONE (22:02)
== END 2022-07-08 22:40 | disposition home or self-care (01) ==
LOC: ERS 18:49
DX: I10 Essential (primary) hypertension (principal); R10.84 Generalized abdominal pain; K21.9 Gastro-esophageal reflux disease without esophagitis; I48.91 Unspecified atrial fibrillation; Z79.01 Long term (current) use of anticoagulants; Z79.899 Other long term (current) drug therapy
CPT/HCPCS: 36415; 71045; 74177; 80053; 83690; 83880; 84484; 85025; 93005; 94760; 96374; J1940; J2060; Q9967

== ENCOUNTER 2022-08-24 16:56 | Observation (INO) | payer MEDICARE ==
[2022-08-24 18:02] LABS: #Eosinphils 0.1 thou/uL (0.0-0.7); #Lymphocytes 1.1 thou/uL (1.20-3.40); #Monocytes 0.5 thou/uL (0.11-0.59); #Neutrophils 4.3 thou/uL (1.40-6.50); %Basophils 0.5 % (0.0-1.0); %Eosinophils 0.9 % (0.0-10.0); %Lymphocytes 18.5 % (21.0-51.0); %Monocytes 7.6 % (0.0-10.0); %Neutrophils 72.6 % (42.0-75.0); Hemoglobin 11.9 g/dL (12.0-16.0); Mean Corpuscular HGB CONC 32.8 g/dL (32.0-36.0); Mean Corpuscular Hemoglobin 31.7 pg (27.0-31.0); Mean Corpuscular Volume 96.7 fl (78.0-98.0); Mean Platelet Volume 6.3 fL (7.4-10.4); Platelet Count 230 10x3/uL (130-400); RBC Distribution Width 11.6 % (11.5-14.5); Red Blood Cell (RBC) Count 3.74 mill/uL (4.20-5.40); White Blood Cell (WBC) Count 5.9 10x3/uL (4.8-10.8)
[2022-08-24 18:21] LABS: ALT (SGPT) 23 U/L (8-55); AST (SGOT) 28 U/L (5-34); Albumin 3.8 g/dL (3.4-4.8); Alkaline Phosphatase 79 U/L (40-110); Anion Gap 10 mmol/L (10-20); BUN (Urea Nitrogen) 23 mg/dL (9.8-20.1); Bilirubin, Total 0.4 mg/dL (0.2-1.2); Calc. Creatinine Clearance 0 mL/min (70-130); Carbon Dioxide 28 mmol/L (23-31); Chloride 98 mmol/L (98-107); Estimated GFR 80; Globulin 2.5 g/dL (2.4-3.5); Glucose 108 mg/dL (83-110); Potassium 4.3 mmol/L (3.5-5.1); Protein, Total 6.3 g/dL (5.8-8.1); Sodium 132 mmol/L (136-145)
[2022-08-24 21:25] LABS: Bilirubin Negative (Negative); Blood, Urine Negative (Negative); Clarity Clear (Clear); Glucose, Urine (Dipstick) Normal (Negative); Ketone, Urine Negative (Negative); Leukocyte Negative Leu/uL (Negative); Nitrite Negative (Negative); Protein, Urine (Dipstick) Negative (Neg-Trace); Specific Gravity, Urine 1.021 (1.002-1.036); Urobilinogen Normal mg/dL (Less than 2)
[2022-08-24 23:36] LABS: Troponin I Less than 0.010 ng/mL (< 0.028)
[2022-08-25] MEDS ORDERED: hydrALAZINE 20 MG/ML VIAL SLOW IVP PRN (00:32)
[2022-08-25] MEDS ORDERED: Acetaminophen 325 MG TAB PO PRN (00:32)
[2022-08-25 03:03] LABS: Hemoglobin A1c 5.8 % (4.0-6.0)
[2022-08-25 03:04] LABS: Troponin I Less than 0.010 ng/mL (< 0.028)
[2022-08-25 03:11] LABS: Cardiac Risk 2.4 (Less than 4.5)
[2022-08-25] MEDS ORDERED: Furosemide 20 MG/2 ML VIAL SLOW IVP SCH (04:45)
[2022-08-25 07:37] LABS: Anion Gap 13 mmol/L (10-20); BUN (Urea Nitrogen) 16 mg/dL (9.8-20.1); Calc. Creatinine Clearance 0 mL/min (70-130); Calcium 9.2 mg/dL (7.8-10.44); Carbon Dioxide 23 mmol/L (23-31); Chloride 101 mmol/L (98-107); Estimated GFR 89; Glucose 91 mg/dL (83-110); Magnesium 1.8 mg/dL (1.6-2.6); Potassium 4.1 mmol/L (3.5-5.1); Sodium 133 mmol/L (136-145)
[2022-08-25 08:03] VITALS: BP 153/89; TEMP 98.3
[2022-08-25] MEDS ORDERED: oxyCODONE ER 20 MG TAB PO SCH (14:00)
[2022-08-25] MEDS ORDERED: Carvedilol 6.25 MG TAB PO SCH (17:00)
[2022-08-25] MEDS ORDERED: Atorvastatin Calcium 40 MG TAB PO SCH (21:00)
[2022-08-25] MEDS ORDERED: Amlodipine 5 MG TAB PO SCH (21:00)
[2022-08-25] MEDS ORDERED: Apixaban 5 MG TAB PO SCH (21:00)
[2022-08-26] MEDS ORDERED: DULoxetine 30 MG CAP PO SCH (09:00)
== END 2022-08-25 12:18 | disposition home or self-care (01) ==
LOC: ERS 16:56 → ERHOLD 22:45
PROVIDERS: ADMIT Internal Medicine; ATTEND Internal Medicine
DX: I16.1 Hypertensive emergency (principal); R42 Dizziness and giddiness; R10.9 Unspecified abdominal pain; F41.9 Anxiety disorder, unspecified; R20.2 Paresthesia of skin; G89.4 Chronic pain syndrome; M54.9 Dorsalgia, unspecified; K21.9 Gastro-esophageal reflux disease without esophagitis; E87.1 Hypo-osmolality and hyponatremia; I48.20 Chronic atrial fibrillation, unspecified; I10 Essential (primary) hypertension; Z79.01 Long term (current) use of anticoagulants; Z79.899 Other long term (current) drug therapy; Z88.0 Allergy status to penicillin; Z88.6 Allergy status to analgesic agent; Z88.8 Allergy status to other drugs, medicaments and biological substances
CPT/HCPCS: 70450; 70551; 71275; 74174; 80048; 80053; 80061; 81003; 83036; 83735; 83880; 84443; 84484 ×3; 85025; 93005; 99285; G0378 ×2; 36415; Q9967

== ENCOUNTER 2022-11-24 18:51 | Emergency (ER) | payer MEDICARE | END 2022-11-24 20:00 | disposition home or self-care (01) | LOC: ERS 18:51 | DX: F41.9 Anxiety disorder, unspecified (principal); K21.9 Gastro-esophageal reflux disease without esophagitis; I10 Essential (primary) hypertension; Z79.01 Long term (current) use of anticoagulants | CPT/HCPCS: 99283 ==